=== PATIENT | male | born 1940 | race Caucasian/White ===

== ENCOUNTER 2019-03-17 11:30 | Inpatient (IN) | payer MEDICARE, MEDICAID ==
[2019-03-17] MEDS ORDERED: Sodium Chloride 0.9% 2.5 ML Syringe FLUSH PRN (11:51)
[2019-03-17] MEDS ORDERED: Sodium Chloride 0.9% 10 ML Syringe FLUSH PRN (11:51)
--- NOTE | 2019-03-17 12:03 | EDM.PDOC ---
ED [facility] GENERAL MEDICAL PROBLEM - General Chief Complaint: General Stated Complaint: FOUND NONE RESPONSIVE Time Seen by Provider: 03/17/19 11:45 Source of Information: Reports: Patient, EMS History Limitations: Reports: No Limitations - History of Present Illness INITIAL COMMENTS - FREE TEXT/NARRATIVE: Patient is a 78-year-old male with no known past medical history presenting after being found down in his living area. Per EMS, they received phone call from neighbors who states that they are concerned that the patient was unresponsive. Upon arrival to the house, the EMS found the patient lying on the floor and was awake but cannot stand on his own. Patient states he had been on the floor for a few hours and that he had felt terribly weak and was unable to walk. Patient denies any injuries and states he only has pain in his lower back area. According to emergency room staff, the patient is well-known in the town for riding his bike all over town. He is living in the area which does not seem suitable for an habitation. The police stopped by the emergency room as well to express her concerns which were confirmed with EMS that he was living in space it was extremely dirty and not habitable. In addition to that documented in the HPI above, the additional ROS was obtained : Constitutional: Denies fevers or chills Eyes: Denies vision changes ENMT: Denies sore throat CV: Denies chest pain Resp: Denies SOB GI: Denies vomiting or diarrhea : Denies painful urination MSK: Denies recent trauma Skin: Denies new rashes Neuro: Denies new numbness or tingling or weakness Endocrine: Denies unexpected weight loss Heme: Denies bleeding disorders I have reviewed the triage vital signs Const: Well nourished, well developed, appears stated age Eyes: PERRL, no conjunctival injection HENT: NCAT, Neck supple without meningismus CV: RRR, Warm, well-perfused extremities RESP: CTAB, Unlabored respiratory effort GI: soft, non-tender, non-distended, no masses MSK: No gross deformities appreciated Skin: Stage I pressure ulcer over the left hip. Warm, dry. No rashes Neuro: Bilateral pill-rolling tremor. alert, sugar grinder II-XII grossly intact. Sensation and motor function of extremities grossly intact. Psych: Appropriate mood and affect Assessment and plan: Patient is a 78-year-old male found down with possible syncopal episode. Patient likely had prolonged downtime with elevated CK in the 4000 range. Patient's renal function demonstrates a BUN of 25 and a creatinine of 0.9. Patient initiated on IV fluids in the emergency department. Otherwise, the patient has no acute abnormalities on labs or imaging studies. Given the patient's advanced age, he is at high risk for having adverse cardiac event and also will require IV fluids and close monitoring of renal function. Patient will be admitted to the hospitalist service for further evaluation and management. general Pain Score (Numeric/FACES): 5 - Related Data Allergies Allergy/AdvReac Type Severity Reaction Status Date / Time No Known Allergies Allergy Verified 03/17/19 11:54 Home Meds: Home Meds . [No Known Home Meds] 01/06/18 [History] Past Medical History HEENT History: Reports: Glaucoma Other HEENT History: wears glasses Genitourinary History: Reports: None Musculoskeletal History: Reports: Back Pain, Chronic Psychiatric History: Reports: Dementia Oncologic (Cancer) History: Reports: Basal Cell Carcinoma - Past Surgical History Head Surgeries/Procedures: Reports: None HEENT Surgical History: Reports: Naso-Sinus Surgery, Tonsillectomy Other HEENT Surgeries/Procedures: submucous resection of turbinate Male Surgical History: Reports: Circumcision ED ROS GENERAL - Review of Systems Review Of Systems: See Below ED EXAM, GENERAL - Physical Exam Exam: See Below Course - Vital Signs Last Recorded V/S: Last Vital Signs Temp 36.7 C 03/17/19 11:50 Pulse 97 03/17/19 13:16 Resp 16 03/17/19 13:16 BP 96/53 L 03/17/19 13:16 Pulse Ox 97 03/17/19 13:16 - Orders/Labs/Meds Orders: Active Orders 24 hr Category Date Time Status EKG Documentation Completion [RC] STAT Care 03/17/19 11:33 Active UA RFX KAVIN AND CULT IF INDIC [URIN] Stat Lab 03/17/19 11:33 Ordered Sodium Chloride 0.9% [Normal Saline] 1,000 ml Med 03/17/19 12:46 Active IV .BOLUS Sodium Chloride 0.9% [Saline Flush] Med 03/17/19 11:51 Active 10 ml FLUSH ASDIRECTED PRN Sodium Chloride 0.9% [Saline Flush] Med 03/17/19 11:51 Active 2.5 ml FLUSH ASDIRECTED PRN Saline Lock Insert [OM.PC] Stat Oth 03/17/19 11:51 Ordered Medication Orders Sodium Chloride (Normal Saline) 1,000 mls @ 999 mls/hr IV .BOLUS ONE Stop: 03/17/19 13:46 Last Admin: 03/17/19 13:05 Dose: 999 mls/hr Sodium Chloride (Saline Flush) 10 ml FLUSH ASDIRECTED PRN PRN Reason: Keep Vein Open Sodium Chloride (Saline Flush) 2.5 ml FLUSH ASDIRECTED PRN PRN Reason: Keep Vein Open Labs: Laboratory Tests 03/17/19 03/17/19 03/17/19 Range/Units 11:44 11:45 11:45 WBC 9.35 (4.0-11.0) K/uL RBC 4.11 L (4.50-5.90) M/uL Hgb 13.1 (13.0-17.0) g/dL Hct 36.5 L (38.0-50.0) % MCV 88.8 (80.0-98.0) fL MCH 31.9 (27.0-32.0) pg MCHC 35.9 (31.0-37.0) g/dL RDW Std Deviation 42.0 (28.0-62.0) fl RDW Coeff of Mary 13 (11.0-15.0) % Plt Count 207 (150-400) K/uL MPV 9.90 (7.40-12.00) fL Neut % (Auto) 81.6 H (48.0-80.0) % Lymph % (Auto) 10.4 L (16.0-40.0) % Clinch % (Auto) 7.6 (0.0-15.0) % Eos % (Auto) 0.2 (0.0-7.0) % Baso % (Auto) 0.2 (0.0-1.5) % Neut # (Auto) 7.6 H (1.4-5.7) K/uL Lymph # (Auto) 1.0 (0.6-2.4) K/uL Clinch # (Auto) 0.7 (0.0-0.8) K/uL Eos # (Auto) 0.0 (0.0-0.7) K/uL Baso # (Auto) 0.0 (0.0-0.1) K/uL Nucleated RBC % 0.0 /100WBC Nucleated RBCs # 0 K/uL Sodium 137 (136-148) mmol/L Potassium 4.0 (3.5-5.1) mmol/L Chloride 101 (98-107) mmol/L Carbon Dioxide 23.4 (21.0-32.0) mmol/L BUN 25 H (7.0-18.0) mg/dL Creatinine 0.9 (0.8-1.3) mg/dL Est Cr Clr Drug Dosing 60.76 mL/min Estimated GFR (MDRD) > 60.0 ml/min Glucose 97 (74-106) mg/dL POC Glucose 99 (60-110) mg/dL Calcium 8.8 (8.5-10.1) mg/dL Total Bilirubin 0.9 (0.2-1.0) mg/dL AST 123 H (15-37) IU/L ALT 74 H (14-63) IU/L Alkaline Phosphatase 98 (46-116) U/L Creatine Kinase 3972 H (26-308) U/L Troponin I < 0.050 (0.000-0.056) ng/mL Total Protein 7.0 (6.4-8.2) g/dL Albumin 3.5 (3.4-5.0) g/dL Globulin 3.5 (2.6-4.0) g/dL Albumin/Globulin Ratio 1.0 (0.9-1.6) Ethyl Alcohol 3 mg/dL Meds: Medications Generic Name Dose Route Start Last Admin Trade Name Freq PRN Reason Stop Dose Admin Sodium Chloride 1,000 mls @ 999 mls/hr 03/17/19 12:46 03/17/19 13:05 Normal Saline IV 03/17/19 13:46 999 mls/hr .BOLUS ONE Administration Sodium Chloride 10 ml 03/17/19 11:51 Saline Flush FLUSH ASDIRECTED PRN Keep Vein Open Sodium Chloride 2.5 ml 03/17/19 11:51 Saline Flush FLUSH ASDIRECTED PRN Keep Vein Open Departure - Departure Time of Disposition: 11:59 Disposition: Admitted As Inpatient 66 Clinical Impression: Syncope and collapse, Rhabdomyolysis - Discharge Information Forms: ED Department Discharge Sepsis Event Note - Evaluation Sepsis Screening Result: No Definite Risk - Focused Exam Vital Signs: Vital Signs Temp Pulse Resp BP Pulse Ox 03/17/19 13:16 97 16 96/53 L 97 03/17/19 12:53 80 15 103/38 L 96 03/17/19 11:50 36.7 C 100 16 138/83 99 Date Exam was Performed: 03/17/19 Time Exam was Performed: 13:45 - My Orders Last 24 Hours: My Active Orders 03/17/19 11:33 EKG Documentation Completion [RC] STAT UA RFX KAVIN AND CULT IF INDIC [URIN] Stat 03/17/19 11:51 Sodium Chloride 0.9% [Saline Flush] 10 ml FLUSH ASDIRECTED PRN Sodium Chloride 0.9% [Saline Flush] 2.5 ml FLUSH ASDIRECTED PRN Saline Lock Insert [OM.PC] Stat 03/17/19 12:46 Sodium Chloride 0.9% [Normal Saline] 1,000 ml IV .BOLUS - Assessment/Plan Last 24 Hours: My Active Orders 03/17/19 11:33 EKG Documentation Completion [RC] STAT UA RFX KAVIN AND CULT IF INDIC [URIN] Stat 03/17/19 11:51 Sodium Chloride 0.9% [Saline Flush] 10 ml FLUSH ASDIRECTED PRN Sodium Chloride 0.9% [Saline Flush] 2.5 ml FLUSH ASDIRECTED PRN Saline Lock Insert [OM.PC] Stat 03/17/19 12:46 Sodium Chloride 0.9% [Normal Saline] 1,000 ml IV .BOLUS
[2019-03-17 12:36] LABS: BLOOD UREA NITROGEN,BUN 25 mg/dL (7.0-18.0); CARBON DIOXIDE,CO2 23.4 mmol/L (21.0-32.0); CHLORIDE,CL 101 mmol/L (98-107); GLUCOSE RANDOM 97 mg/dL (74-106); SODIUM,NA 137 mmol/L (136-148)
[2019-03-17] MEDS ORDERED: Sodium Chloride 0.9% 1,000 ML IV ONE ×2 (12:46→14:02)
--- NOTE | 2019-03-17 12:53 | CT ---
Head CT Technique: Multiple axial sections through the brain were obtained. Intravenous contrast was not utilized. Comparison: No prior intracranial imaging is available. Findings: Ventricles are rather markedly dilated. Sulci over the convexities are less prominently dilated. Prominent cisterna magna is noted. Old infarct is noted within the right cerebellar hemisphere. No other abnormal parenchymal densities are seen. No evidence of intracranial hemorrhage. No midline shift or mass effect is seen. Bone window settings were reviewed. Mild mucosal thickening is seen within the right maxillary sinus and within the ethmoid sinuses. These sinus findings are most likely chronic. Mastoid sinuses show nothing acute. No acute calvarial abnormality is appreciated. Impression: 1. Atrophy with greater central component. 2. Old right cerebellar infarct. 3. Nothing acute is otherwise seen on noncontrast head CT exam. Diagnostic code #2 This report was dictated in [place] Standard Time
--- NOTE | 2019-03-17 13:28 | CR ---
Chest: Supine view of the chest was obtained. Comparison: No prior chest imaging is available. Heart size and mediastinum are normal. Lungs are clear with no acute parenchymal change. Bony structures show scattered endplate spurring within the spine as well as osteopenia. Impression: 1. Nothing acute is seen on supine abdominal x-ray. Diagnostic code #2 Study was dictated in [place] Standard Time
--- NOTE | 2019-03-17 13:38 | CR ---
Left hip and pelvis: AP view of the pelvis was obtained as well as AP and frog-leg lateral views left hip. Mild joint space narrowing is seen within both hips. Disc space narrowing is noted within the lower lumbar spine with scoliosis and endplate spurring. Bony structures are osteoporotic. No acute fracture or dislocation is seen. Impression: 1. Osteopenia and degenerative change as noted above. 2. Nothing acute is appreciated. Diagnostic code #2 Study was dictated in [place] Standard Time
[2019-03-17] MEDS ORDERED: Sodium Chloride 0.9% 1,000 ML IV SCH (14:00)
[2019-03-17] MEDS ORDERED: Ondansetron 4 MG/2 ML SDV IVPUSH PRN (14:31)
[2019-03-17] MEDS ORDERED: Acetaminophen 325 MG Tab PO PRN (14:31)
--- NOTE | 2019-03-17 14:57 | PCM.HP.2 ---
H&P History of Present Illness - General Date of Service: 03/17/19 Admit Problem/Dx: Admission Diagnosis/Problem Admission Diagnosis/Problem Syncope and collapse Source of Information: Patient History Limitations: Reports: No Limitations - History of Present Illness Initial Comments - Free Text/Narative: This 78 year old male with no past medical history reports presented to the ED via EMS after being found by neighbors lying on the ground and unable to get up. He reports he fell and had been laying there for a couple hours. He is unsure how he fell down, isn't sure he fully passed out. He might had hit his head but isn't sure. He states he feels his legs just gave out. He denies chest pain, but reports it hurting when he takes a deep breath in. No abdominal pain. Reports concerns urinating at times. No shortness of breath or cough. No sore throat or sinus congestion. No neck pain. He reports L and R hip pain. He denies alcohol or tobacco use and no recreational drug use. 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 In the ED CBC WNL, AST and ALT slightly elevated. Troponin negative. EKG SR mild ST elevation, lead II, III but no chest pain. CPK elevated 3900. He was given IVFs x 1 L NS in the ED. He will be admitted for possible syncope and rhabdomyolysis. general Pain Score (Numeric/FACES): 5 - Related Data Allergies/Adverse Reactions: Allergies Allergy/AdvReac Type Severity Reaction Status Date / Time No Known Allergies Allergy Verified 03/17/19 11:54 Home Medications: Home Meds . [No Known Home Meds] 01/06/18 [History] Past Medical History - Past Health History Medical/Surgical History: Denies Medical/Surgical History HEENT History: Reports: Glaucoma Other HEENT History: wears glasses Cardiovascular History: Reports: None. Denies: CAD, Hypertension, [place] Respiratory History: Reports: None Gastrointestinal History: Reports: None Genitourinary History: Reports: None Musculoskeletal History: Reports: Back Pain, Chronic Neurological History: Reports: None Psychiatric History: Reports: Dementia Endocrine/Metabolic History: Reports: None. Denies: Diabetes, Type II, Obesity/ BMI 30+ Oncologic (Cancer) History: Reports: Basal Cell Carcinoma - Past Surgical History Head Surgeries/Procedures: Reports: None HEENT Surgical History: Reports: Naso-Sinus Surgery, Tonsillectomy Other HEENT Surgeries/Procedures: submucous resection of turbinate Male Surgical History: Reports: Circumcision Social & Family History - Family History Family Medical History: Noncontributory - Tobacco Use Smoking Status *Q: Never Smoker - Alcohol Use Alcohol Use History: No - Recreational Drug Use Recreational Drug Use: No Drug Use in Last 12 Months: No - Living Situation & Occupation Living situation: Reports: Alone Occupation: Retired H&P Review of Systems - Review of Systems: Review Of Systems: See Below General: Reports: Malaise, Weakness, Fatigue HEENT: Reports: No Symptoms. Denies: Headaches, Sinus Congestion, Sore Throat Pulmonary: Reports: Pleuritic Chest Pain (with deep breathing). Denies: Shortness of Breath Cardiovascular: Reports: Syncope. Denies: Chest Pain, Lightheadedness Gastrointestinal: Reports: No Symptoms. Denies: Abdominal Pain, Black Stool, Bloody Stool, Nausea, Vomiting Genitourinary: Reports: Retention Musculoskeletal: Reports: No Symptoms Skin: Reports: Bruising, Wound Psychiatric: Reports: No Symptoms Neurological: Reports: No Symptoms Exam - Exam Exam: See Below - Vital Signs Vital Signs: Last Vital Signs Temp 98.0 F 03/17/19 11:50 Pulse 97 03/17/19 13:16 Resp 16 03/17/19 13:16 BP 96/53 L 03/17/19 13:16 Pulse Ox 97 03/17/19 13:16 Weight: 63.503 kg - Exam General: Alert, Oriented, Cooperative, Other (disheveled in appearance, with dirty nails and multiple skin abrasions. ) HEENT: No: Mucosa Moist & Mcroberts, Other (L lower eye lid basal cell carcinoma ) Neck: Supple Lungs: Clear to Auscultation, Normal Respiratory Effort Cardiovascular: Regular Rate, Regular Rhythm GI/Abdominal Exam: Normal Bowel Sounds, Soft, Non-Tender Back Exam: Normal Inspection, Full Range of Motion Extremities: Normal Inspection, Pedal Edema (+1 pitting edema) Skin: Warm, Dry, Ecchymosis (L hip bruising, multiple skin abrasions noted to elbows and forearms. . Large abrasion to L knee. Old blistered burn to R middle finger, doesn't know how this got there. ), Wound Neuro Extensive - Mental Status: Alert, Oriented x3, Normal Mood/Affect Psychiatric: Alert, Normal Affect, Normal Mood - Patient Data Lab Results Last 24 hrs: Laboratory Results - last 24 hr 03/17/19 03/17/19 03/17/19 Range/Units 11:44 11:45 11:45 WBC 9.35 (4.0-11.0) K/uL RBC 4.11 L (4.50-5.90) M/uL Hgb 13.1 (13.0-17.0) g/dL Hct 36.5 L (38.0-50.0) % MCV 88.8 (80.0-98.0) fL MCH 31.9 (27.0-32.0) pg MCHC 35.9 (31.0-37.0) g/dL RDW Std Deviation 42.0 (28.0-62.0) fl RDW Coeff of Mary 13 (11.0-15.0) % Plt Count 207 (150-400) K/uL MPV 9.90 (7.40-12.00) fL Neut % (Auto) 81.6 H (48.0-80.0) % Lymph % (Auto) 10.4 L (16.0-40.0) % Harmon % (Auto) 7.6 (0.0-15.0) % Eos % (Auto) 0.2 (0.0-7.0) % Baso % (Auto) 0.2 (0.0-1.5) % Neut # (Auto) 7.6 H (1.4-5.7) K/uL Lymph # (Auto) 1.0 (0.6-2.4) K/uL Harmon # (Auto) 0.7 (0.0-0.8) K/uL Eos # (Auto) 0.0 (0.0-0.7) K/uL Baso # (Auto) 0.0 (0.0-0.1) K/uL Nucleated RBC % 0.0 /100WBC Nucleated RBCs # 0 K/uL Sodium 137 (136-148) mmol/L Potassium 4.0 (3.5-5.1) mmol/L Chloride 101 (98-107) mmol/L Carbon Dioxide 23.4 (21.0-32.0) mmol/L BUN 25 H (7.0-18.0) mg/dL Creatinine 0.9 (0.8-1.3) mg/dL Est Cr Clr Drug Dosing 60.76 mL/min Estimated GFR (MDRD) > 60.0 ml/min Glucose 97 (74-106) mg/dL POC Glucose 99 (60-110) mg/dL Calcium 8.8 (8.5-10.1) mg/dL Total Bilirubin 0.9 (0.2-1.0) mg/dL AST 123 H (15-37) IU/L ALT 74 H (14-63) IU/L Alkaline Phosphatase 98 (46-116) U/L Creatine Kinase 3972 H (26-308) U/L Troponin I < 0.050 (0.000-0.056) ng/mL Total Protein 7.0 (6.4-8.2) g/dL Albumin 3.5 (3.4-5.0) g/dL Globulin 3.5 (2.6-4.0) g/dL Albumin/Globulin Ratio 1.0 (0.9-1.6) Ethyl Alcohol 3 mg/dL Result Diagrams: 03/17/19 11:45 03/17/19 11:45 Sepsis Event Note - Evaluation Sepsis Screening Result: No Definite Risk - Focused Exam Vital Signs: Vital Signs Temp Pulse Resp BP Pulse Ox 03/17/19 13:16 97 16 96/53 L 97 03/17/19 12:53 80 15 103/38 L 96 03/17/19 11:50 98.0 F 100 16 138/83 99 Date Exam was Performed: 03/17/19 Time Exam was Performed: 14:46 *Q Meaningful Use (ADM) - VTE Risk Assess *Q Each Risk Factor Represents 1 Point: None Total Score 1 Point Risk Factors: 0 Each Risk Factor Represents 2 Points: None Total Score 2 Point Risk Factors: 0 Each Risk Factor Represents 3 Points: Age 75 Years or Greater Total Score 3 Point Risk Factors: 3 Each Risk Factor Represents 5 Points: None Total Score 5 Point Risk Factors: 0 Venous Thromboembolism Risk Factor Score *Q: 3 - Problem List (1) Total self-care deficit SNOMED Code(s): 68727583 ICD Code: R68.89 - OTHER GENERAL SYMPTOMS AND SIGNS Status: Acute Current Visit: Yes (2) Weakness SNOMED Code(s): 94701538 ICD Code: R53.1 - WEAKNESS Status: Acute Current Visit: Yes (3) Rhabdomyolysis SNOMED Code(s): 610403713 ICD Code: M62.82 - RHABDOMYOLYSIS Status: Acute Current Visit: No (4) Syncope and collapse SNOMED Code(s): 173253185 ICD Code: R55 - SYNCOPE AND COLLAPSE Status: Acute Current Visit: No Problem List Initiated/Reviewed/Updated: Yes Orders Last 24hrs: Active Orders 24 hr Category Date Time Status Admission Status [Patient Status] [ADT] Stat ADT 03/17/19 13:53 Active Bladder Scan [RC] ASDIRECTED Care 03/17/19 14:40 Ordered EKG Documentation Completion [RC] STAT Care 03/17/19 11:33 Active Height and Weight [RC] DAILY Care 03/17/19 14:31 Ordered Intake and Output Strict [RC] ASDIRECTED Care 03/17/19 14:46 Ordered Intake and Output [RC] QSHIFT Care 03/17/19 14:32 Inactive May Shower [RC] ASDIRECTED Care 03/17/19 14:31 Ordered Oxygen Therapy [RC] PRN Care 03/17/19 14:32 Ordered Up With Assistance [RC] ASDIRECTED Care 03/17/19 14:31 Ordered VTE/DVT Education [RC] PER UNIT ROUTINE Care 03/17/19 14:32 Ordered Vital Signs [RC] Q4H Care 03/17/19 14:32 Ordered Consult to Case Management/Tire Finisher [CONS] Cons 03/17/19 14:31 Ordered Routine OT Evaluation and Treatment [CONS] Routine Cons 03/17/19 14:31 Ordered PT Evaluation and Treatment [CONS] Routine Cons 03/18/19 08:00 Ordered Regular Diet [DIET] Diet 03/17/19 Lunch Ordered CBC WITH AUTO DIFF [HEME] AM Lab 03/18/19 05:11 Ordered CBC WITH AUTO DIFF [HEME] AM Lab 03/19/19 05:11 Ordered CBC WITH AUTO DIFF [HEME] AM Lab 03/20/19 05:11 Ordered COMPREHENSIVE METABOLIC PN,CMP [CHEM] AM Lab 03/18/19 05:11 Ordered COMPREHENSIVE METABOLIC PN,CMP [CHEM] AM Lab 03/19/19 05:11 Ordered COMPREHENSIVE METABOLIC PN,CMP [CHEM] AM Lab 03/20/19 05:11 Ordered CPK [CREATINE KINASE,CK] [CHEM] AM Lab 03/18/19 05:11 Ordered CPK [CREATINE KINASE,CK] [CHEM] AM Lab 03/19/19 05:11 Ordered CPK [CREATINE KINASE,CK] [CHEM] AM Lab 03/20/19 05:11 Ordered CPK [CREATINE KINASE,CK] [CHEM] Timed Lab 03/17/19 17:45 Ordered DRUG SCREEN, URINE [URCHEM] Stat Lab 03/17/19 14:02 Ordered MAGNESIUM [CHEM] AM Lab 03/18/19 05:11 Ordered MAGNESIUM [CHEM] AM Lab 03/19/19 05:11 Ordered MAGNESIUM [CHEM] AM Lab 03/20/19 05:11 Ordered MAGNESIUM [CHEM] Routine Lab 03/17/19 14:31 Ordered PHOSPHORUS [CHEM] AM Lab 03/18/19 05:11 Ordered PHOSPHORUS [CHEM] AM Lab 03/19/19 05:11 Ordered PHOSPHORUS [CHEM] AM Lab 03/20/19 05:11 Ordered PHOSPHORUS [CHEM] Routine Lab 03/17/19 14:31 Ordered TROPONIN I [CHEM] Q6H Lab 03/17/19 17:45 Ordered TROPONIN I [CHEM] Q6H Lab 03/17/19 23:45 Ordered UA RFX KAVIN AND CULT IF INDIC [URIN] Stat Lab 03/17/19 11:33 Ordered Acetaminophen [Tylenol] Med 03/17/19 14:31 Ordered 650 mg PO Q4H PRN Ondansetron [Zofran] Med 03/17/19 14:31 Ordered 4 mg IVPUSH Q4H PRN Sodium Chloride 0.9% [Normal Saline] 1,000 ml Med 03/17/19 14:02 Active IV .BOLUS Sodium Chloride 0.9% [Normal Saline] 1,000 ml Med 03/17/19 14:45 Ordered IV Q6H Sodium Chloride 0.9% [Saline Flush] Med 03/17/19 11:51 Active 10 ml FLUSH ASDIRECTED PRN Sodium Chloride 0.9% [Saline Flush] Med 03/17/19 11:51 Active 2.5 ml FLUSH ASDIRECTED PRN Saline Lock Insert [OM.PC] Stat Oth 03/17/19 11:51 Ordered Resuscitation Status Routine Resus Stat 03/17/19 14:31 Ordered Medication Orders Acetaminophen (Tylenol) 650 mg PO Q4H PRN PRN Reason: Pain (mild 1-3) Sodium Chloride (Normal Saline) 1,000 mls @ 999 mls/hr IV .BOLUS ONE Stop: 03/17/19 15:02 Sodium Chloride (Normal Saline) 1,000 mls @ 150 mls/hr IV Q6H BEN Ondansetron HCl (Zofran) 4 mg IVPUSH Q4H PRN PRN Reason: Nausea Sodium Chloride (Saline Flush) 10 ml FLUSH ASDIRECTED PRN PRN Reason: Keep Vein Open Sodium Chloride (Saline Flush) 2.5 ml FLUSH ASDIRECTED PRN PRN Reason: Keep Vein Open Assessment/Plan Comment:: This 78 year old male admitted with syncope and rhabdomyolysis 1. Syncope: Suspected, unsure of how he fell. Will monitor on telemetry. Trend troponins. Monitor VS. 2. Rhabdomyolysis: Give another 1 L NS bolus, then continue IVFs at 150 ml/s hr , recheck CPK this evening. Will monitor I/O Strictly. reports not urinating well, will bladder scan, may need to place graff catheter. UA pending. 3. Total self care deficit: Consult Social work. Malnutrition suspected, will monitor electrolytes. VTE prophylaxis: Heparin Dispo: 2-3 days. - Mortality Measure Prognosis:: Good
[2019-03-17] MEDS: Heparin Sodium 5,000 Units/ML Vial SUBCUT SCH ×2 (16:09→22:59)
[2019-03-17] MEDS: Sodium Chloride 0.9% 1,000 ML IV SCH ×2 (16:16→22:58)
[2019-03-18] MEDS: Diltiazem 25 MG/5 ML SDV IVPUSH PRN (00:16)
[2019-03-18] MEDS: Sodium Chloride 0.9% 1,000 ML IV SCH ×4 (03:17→19:04)
[2019-03-18 06:12] LABS: BLOOD UREA NITROGEN,BUN 22 mg/dL (7.0-18.0); CARBON DIOXIDE,CO2 21.4 mmol/L (21.0-32.0); CHLORIDE,CL 106 mmol/L (98-107); GLUCOSE RANDOM 104 mg/dL (74-106); POTASSIUM,K 3.9 mmol/L (3.5-5.1); SODIUM,NA 140 mmol/L (136-148)
[2019-03-18] MEDS ORDERED: Magnesium Sulfate/Water 2 GM in Premix Bag 1 BAG IV ONE (08:06)
[2019-03-18] MEDS: Phosphorus #1 250 MG Tab PO SCH ×4 (08:19→23:09)
[2019-03-18] MEDS: Heparin Sodium 5,000 Units/ML Vial SUBCUT SCH ×3 (08:21→22:46)
--- NOTE | 2019-03-18 09:14 | PCM.PN ---
- General Info Date of Service: 03/18/19 Admission Dx/Problem (Free Text): Admission Diagnosis/Problem Admission Diagnosis/Problem Syncope and collapse Subjective Update: Feeling good today. No concerns. Asking about his glasses. No chest pain or palpitations. No hip pain. Functional Status: Reports: Pain Controlled, Tolerating Diet, Urinating. Denies : Ambulating - Review of Systems HEENT: Reports: No Symptoms Pulmonary: Reports: No Symptoms. Denies: Shortness of Breath Cardiovascular: Reports: No Symptoms. Denies: Chest Pain Gastrointestinal: Reports: No Symptoms. Denies: Abdominal Pain, Nausea, Vomiting Genitourinary: Reports: No Symptoms Musculoskeletal: Reports: No Symptoms Skin: Reports: No Symptoms Neurological: Reports: No Symptoms Psychiatric: Reports: No Symptoms - Patient Data Vitals - Most Recent: Last Vital Signs Temp 98 F 03/18/19 07:15 Pulse 85 03/18/19 07:15 Resp 16 03/18/19 07:15 BP 102/52 L 03/18/19 07:15 Pulse Ox 92 L 03/18/19 07:15 Weight - Most Recent: 61.45 kg I&O - Last 24 Hours: Intake & Output 03/17/19 03/18/19 03/18/19 22:59 06:59 14:59 Intake Total 1149 2184 Output Total 210 636 Balance 939 6488 Lab Results Last 24 Hours: Laboratory Results - last 24 hr 03/17/19 03/17/19 03/17/19 Range/Units 11:44 11:45 11:45 WBC 9.35 (4.0-11.0) K/uL RBC 4.11 L (4.50-5.90) M/uL Hgb 13.1 (13.0-17.0) g/dL Hct 36.5 L (38.0-50.0) % MCV 88.8 (80.0-98.0) fL MCH 31.9 (27.0-32.0) pg MCHC 35.9 (31.0-37.0) g/dL RDW Std Deviation 42.0 (28.0-62.0) fl RDW Coeff of Mary 13 (11.0-15.0) % Plt Count 207 (150-400) K/uL MPV 9.90 (7.40-12.00) fL Neut % (Auto) 81.6 H (48.0-80.0) % Lymph % (Auto) 10.4 L (16.0-40.0) % [place] % (Auto) 7.6 (0.0-15.0) % Eos % (Auto) 0.2 (0.0-7.0) % Baso % (Auto) 0.2 (0.0-1.5) % Neut # (Auto) 7.6 H (1.4-5.7) K/uL Lymph # (Auto) 1.0 (0.6-2.4) K/uL [place] # (Auto) 0.7 (0.0-0.8) K/uL Eos # (Auto) 0.0 (0.0-0.7) K/uL Baso # (Auto) 0.0 (0.0-0.1) K/uL Nucleated RBC % 0.0 /100WBC Nucleated RBCs # 0 K/uL Sodium 137 (136-148) mmol/L Potassium 4.0 (3.5-5.1) mmol/L Chloride 101 (98-107) mmol/L Carbon Dioxide 23.4 (21.0-32.0) mmol/L BUN 25 H (7.0-18.0) mg/dL Creatinine 0.9 (0.8-1.3) mg/dL Est Cr Clr Drug Dosing 60.76 mL/min Estimated GFR (MDRD) > 60.0 ml/min Glucose 97 (74-106) mg/dL POC Glucose 99 (60-110) mg/dL Calcium 8.8 (8.5-10.1) mg/dL Phosphorus (2.6-4.7) mg/dL Magnesium (1.8-2.4) mg/dL Total Bilirubin 0.9 (0.2-1.0) mg/dL AST 123 H (15-37) IU/L ALT 74 H (14-63) IU/L Alkaline Phosphatase 98 (46-116) U/L Creatine Kinase 3972 H (26-308) U/L Troponin I < 0.050 (0.000-0.056) ng/mL Total Protein 7.0 (6.4-8.2) g/dL Albumin 3.5 (3.4-5.0) g/dL Globulin 3.5 (2.6-4.0) g/dL Albumin/Globulin Ratio 1.0 (0.9-1.6) Urine Color Urine Appearance Urine pH (5.0-8.0) Ur Specific [place] (1.001-1.035) Urine Protein (NEGATIVE) mg/dL Urine Glucose (UA) (NEGATIVE) mg/dL Urine Ketones (NEGATIVE) mg/dL Urine Occult Blood (NEGATIVE) Urine Nitrite (NEGATIVE) Urine Bilirubin (NEGATIVE) Urine Urobilinogen (<2.0) EU/dL Ur Leukocyte Esterase (NEGATIVE) Urine RBC (0-2/HPF) Urine WBC (0-5/HPF) Ur Epithelial Cells (NONE-FEW) Urine Bacteria (NEGATIVE) Urine Opiates Screen (NEGATIVE) Ur Oxycodone Screen (NEGATIVE) Urine Methadone Screen (NEGATIVE) Ur Barbiturates Screen (NEGATIVE) Ur Phencyclidine Scrn (NEGATIVE) Ur Amphetamine Screen (NEGATIVE) U Methamphetamines Scrn (NEGATIVE) U Benzodiazepines Scrn (NEGATIVE) U Cocaine Metab Screen (NEGATIVE) U Marijuana (THC) Screen (NEGATIVE) Ethyl Alcohol 3 mg/dL 03/17/19 03/17/19 03/17/19 Range/Units 11:45 17:29 17:29 WBC (4.0-11.0) K/uL RBC (4.50-5.90) M/uL Hgb (13.0-17.0) g/dL Hct (38.0-50.0) % MCV (80.0-98.0) fL MCH (27.0-32.0) pg MCHC (31.0-37.0) g/dL RDW Std Deviation (28.0-62.0) fl RDW Coeff of Mary (11.0-15.0) % Plt Count (150-400) K/uL MPV (7.40-12.00) fL Neut % (Auto) (48.0-80.0) % Lymph % (Auto) (16.0-40.0) % [place] % (Auto) (0.0-15.0) % Eos % (Auto) (0.0-7.0) % Baso % (Auto) (0.0-1.5) % Neut # (Auto) (1.4-5.7) K/uL Lymph # (Auto) (0.6-2.4) K/uL [place] # (Auto) (0.0-0.8) K/uL Eos # (Auto) (0.0-0.7) K/uL Baso # (Auto) (0.0-0.1) K/uL Nucleated RBC % /100WBC Nucleated RBCs # K/uL Sodium (136-148) mmol/L Potassium (3.5-5.1) mmol/L Chloride (98-107) mmol/L Carbon Dioxide (21.0-32.0) mmol/L BUN (7.0-18.0) mg/dL Creatinine (0.8-1.3) mg/dL Est Cr Clr Drug Dosing mL/min Estimated GFR (MDRD) ml/min Glucose (74-106) mg/dL POC Glucose (60-110) mg/dL Calcium (8.5-10.1) mg/dL Phosphorus 2.9 (2.6-4.7) mg/dL Magnesium 1.8 (1.8-2.4) mg/dL Total Bilirubin (0.2-1.0) mg/dL AST (15-37) IU/L ALT (14-63) IU/L Alkaline Phosphatase (46-116) U/L Creatine Kinase (26-308) U/L Troponin I (0.000-0.056) ng/mL Total Protein (6.4-8.2) g/dL Albumin (3.4-5.0) g/dL Globulin (2.6-4.0) g/dL Albumin/Globulin Ratio (0.9-1.6) Urine Color YELLOW Urine Appearance CLEAR Urine pH 6.0 (5.0-8.0) Ur Specific [place] 1.025 (1.001-1.035) Urine Protein TRACE H (NEGATIVE) mg/dL Urine Glucose (UA) NEGATIVE (NEGATIVE) mg/dL Urine Ketones 15 H (NEGATIVE) mg/dL Urine Occult Blood MODERATE H (NEGATIVE) Urine Nitrite NEGATIVE (NEGATIVE) Urine Bilirubin NEGATIVE (NEGATIVE) Urine Urobilinogen 0.2 (<2.0) EU/dL Ur Leukocyte Esterase NEGATIVE (NEGATIVE) Urine RBC 0-1 (0-2/HPF) Urine WBC 0-1 (0-5/HPF) Ur Epithelial Cells NOT SEEN (NONE-FEW) Urine Bacteria RARE (NEGATIVE) Urine Opiates Screen NEGATIVE (NEGATIVE) Ur Oxycodone Screen NEGATIVE (NEGATIVE) Urine Methadone Screen NEGATIVE (NEGATIVE) Ur Barbiturates Screen NEGATIVE (NEGATIVE) Ur Phencyclidine Scrn NEGATIVE (NEGATIVE) Ur Amphetamine Screen NEGATIVE (NEGATIVE) U Methamphetamines Scrn NEGATIVE (NEGATIVE) U Benzodiazepines Scrn NEGATIVE (NEGATIVE) U Cocaine Metab Screen NEGATIVE (NEGATIVE) U Marijuana (THC) Screen NEGATIVE (NEGATIVE) Ethyl Alcohol mg/dL 03/17/19 03/17/19 03/18/19 Range/Units 17:43 23:43 05:32 WBC 8.29 (4.0-11.0) K/uL RBC 3.53 L (4.50-5.90) M/uL Hgb 11.1 L (13.0-17.0) g/dL Hct 31.8 L (38.0-50.0) % MCV 90.1 (80.0-98.0) fL MCH 31.4 (27.0-32.0) pg MCHC 34.9 (31.0-37.0) g/dL RDW Std Deviation 42.8 (28.0-62.0) fl RDW Coeff of Mary 13 (11.0-15.0) % Plt Count 183 (150-400) K/uL MPV 9.00 (7.40-12.00) fL Neut % (Auto) 79.1 (48.0-80.0) % Lymph % (Auto) 12.8 L (16.0-40.0) % [place] % (Auto) 6.6 (0.0-15.0) % Eos % (Auto) 1.1 (0.0-7.0) % Baso % (Auto) 0.4 (0.0-1.5) % Neut # (Auto) 6.6 H (1.4-5.7) K/uL Lymph # (Auto) 1.1 (0.6-2.4) K/uL [place] # (Auto) 0.6 (0.0-0.8) K/uL Eos # (Auto) 0.1 (0.0-0.7) K/uL Baso # (Auto) 0.0 (0.0-0.1) K/uL Nucleated RBC % 0.0 /100WBC Nucleated RBCs # 0 K/uL Sodium (136-148) mmol/L Potassium (3.5-5.1) mmol/L Chloride (98-107) mmol/L Carbon Dioxide (21.0-32.0) mmol/L BUN (7.0-18.0) mg/dL Creatinine (0.8-1.3) mg/dL Est Cr Clr Drug Dosing mL/min Estimated GFR (MDRD) ml/min Glucose (74-106) mg/dL POC Glucose (60-110) mg/dL Calcium (8.5-10.1) mg/dL Phosphorus (2.6-4.7) mg/dL Magnesium (1.8-2.4) mg/dL Total Bilirubin (0.2-1.0) mg/dL AST (15-37) IU/L ALT (14-63) IU/L Alkaline Phosphatase (46-116) U/L Creatine Kinase 3876 H (26-308) U/L Troponin I < 0.050 < 0.050 (0.000-0.056) ng/mL Total Protein (6.4-8.2) g/dL Albumin (3.4-5.0) g/dL Globulin (2.6-4.0) g/dL Albumin/Globulin Ratio (0.9-1.6) Urine Color Urine Appearance Urine pH (5.0-8.0) Ur Specific [place] (1.001-1.035) Urine Protein (NEGATIVE) mg/dL Urine Glucose (UA) (NEGATIVE) mg/dL Urine Ketones (NEGATIVE) mg/dL Urine Occult Blood (NEGATIVE) Urine Nitrite (NEGATIVE) Urine Bilirubin (NEGATIVE) Urine Urobilinogen (<2.0) EU/dL Ur Leukocyte Esterase (NEGATIVE) Urine RBC (0-2/HPF) Urine WBC (0-5/HPF) Ur Epithelial Cells (NONE-FEW) Urine Bacteria (NEGATIVE) Urine Opiates Screen (NEGATIVE) Ur Oxycodone Screen (NEGATIVE) Urine Methadone Screen (NEGATIVE) Ur Barbiturates Screen (NEGATIVE) Ur Phencyclidine Scrn (NEGATIVE) Ur Amphetamine Screen (NEGATIVE) U Methamphetamines Scrn (NEGATIVE) U Benzodiazepines Scrn (NEGATIVE) U Cocaine Metab Screen (NEGATIVE) U Marijuana (THC) Screen (NEGATIVE) Ethyl Alcohol mg/dL 03/18/19 Range/Units 05:32 WBC (4.0-11.0) K/uL RBC (4.50-5.90) M/uL Hgb (13.0-17.0) g/dL Hct (38.0-50.0) % MCV (80.0-98.0) fL MCH (27.0-32.0) pg MCHC (31.0-37.0) g/dL RDW Std Deviation (28.0-62.0) fl RDW Coeff of Mary (11.0-15.0) % Plt Count (150-400) K/uL MPV (7.40-12.00) fL Neut % (Auto) (48.0-80.0) % Lymph % (Auto) (16.0-40.0) % [place] % (Auto) (0.0-15.0) % Eos % (Auto) (0.0-7.0) % Baso % (Auto) (0.0-1.5) % Neut # (Auto) (1.4-5.7) K/uL Lymph # (Auto) (0.6-2.4) K/uL [place] # (Auto) (0.0-0.8) K/uL Eos # (Auto) (0.0-0.7) K/uL Baso # (Auto) (0.0-0.1) K/uL Nucleated RBC % /100WBC Nucleated RBCs # K/uL Sodium 140 (136-148) mmol/L Potassium 3.9 (3.5-5.1) mmol/L Chloride 106 (98-107) mmol/L Carbon Dioxide 21.4 (21.0-32.0) mmol/L BUN 22 H (7.0-18.0) mg/dL Creatinine 0.9 (0.8-1.3) mg/dL Est Cr Clr Drug Dosing 58.79 mL/min Estimated GFR (MDRD) > 60.0 ml/min Glucose 104 (74-106) mg/dL POC Glucose (60-110) mg/dL Calcium 7.7 L (8.5-10.1) mg/dL Phosphorus 2.1 L (2.6-4.7) mg/dL Magnesium 1.7 L (1.8-2.4) mg/dL Total Bilirubin 0.7 (0.2-1.0) mg/dL AST 131 H (15-37) IU/L ALT 73 H (14-63) IU/L Alkaline Phosphatase 67 (46-116) U/L Creatine Kinase 2955 H (26-308) U/L Troponin I (0.000-0.056) ng/mL Total Protein 5.7 L (6.4-8.2) g/dL Albumin 2.7 L (3.4-5.0) g/dL Globulin 3.0 (2.6-4.0) g/dL Albumin/Globulin Ratio 0.9 (0.9-1.6) Urine Color Urine Appearance Urine pH (5.0-8.0) Ur Specific [place] (1.001-1.035) Urine Protein (NEGATIVE) mg/dL Urine Glucose (UA) (NEGATIVE) mg/dL Urine Ketones (NEGATIVE) mg/dL Urine Occult Blood (NEGATIVE) Urine Nitrite (NEGATIVE) Urine Bilirubin (NEGATIVE) Urine Urobilinogen (<2.0) EU/dL Ur Leukocyte Esterase (NEGATIVE) Urine RBC (0-2/HPF) Urine WBC (0-5/HPF) Ur Epithelial Cells (NONE-FEW) Urine Bacteria (NEGATIVE) Urine Opiates Screen (NEGATIVE) Ur Oxycodone Screen (NEGATIVE) Urine Methadone Screen (NEGATIVE) Ur Barbiturates Screen (NEGATIVE) Ur Phencyclidine Scrn (NEGATIVE) Ur Amphetamine Screen (NEGATIVE) U Methamphetamines Scrn (NEGATIVE) U Benzodiazepines Scrn (NEGATIVE) U Cocaine Metab Screen (NEGATIVE) U Marijuana (THC) Screen (NEGATIVE) Ethyl Alcohol mg/dL Med Orders - Current: Current Medications Acetaminophen (Tylenol) 650 mg PO Q4H PRN PRN Reason: Pain (mild 1-3) Diltiazem HCl (Diltiazem) 10 mg IVPUSH Q3H PRN PRN Reason: Tachycardia Last Admin: 03/18/19 00:16 Dose: 10 mg Heparin Sodium (Porcine) (Heparin Sodium) 5,000 units SUBCUT Q8H [facility] Last Admin: 03/18/19 08:21 Dose: 5,000 units Sodium Chloride (Normal Saline) 1,000 mls @ 150 mls/hr IV Q6H [facility] Last Admin: 03/18/19 05:54 Dose: 150 mls/hr Ondansetron HCl (Zofran) 4 mg IVPUSH Q4H PRN PRN Reason: Nausea Sodium Chloride (Saline Flush) 10 ml FLUSH ASDIRECTED PRN PRN Reason: Keep Vein Open Sodium Chloride (Saline Flush) 2.5 ml FLUSH ASDIRECTED PRN PRN Reason: Keep Vein Open Sodium Phosphate (Neutra-Phos) 250 mg PO QID [facility] Last Admin: 03/18/19 08:19 Dose: 250 mg Discontinued Medications Sodium Chloride (Normal Saline) 1,000 mls @ 999 mls/hr IV .BOLUS ONE Stop: 03/17/19 13:46 Last Admin: 03/17/19 13:05 Dose: 999 mls/hr Sodium Chloride (Normal Saline) 1,000 mls @ 125 mls/hr IV ASDIRECTED [facility] Last Admin: 03/17/19 13:58 Dose: 125 mls/hr Sodium Chloride (Normal Saline) 1,000 mls @ 999 mls/hr IV .BOLUS ONE Stop: 03/17/19 15:02 Last Admin: 03/17/19 15:35 Dose: 999 mls/hr Magnesium Sulfate 2 gm/ Premix 50 mls @ 50 mls/hr IV ONETIME ONE Stop: 03/18/19 09:05 Last Admin: 03/18/19 08:21 Dose: 50 mls/hr - Exam General: Alert, Oriented (easily forgetful, repeats questions), Cooperative, No Acute Distress Lungs: Clear to Auscultation Cardiovascular: Regular Rate, Regular Rhythm GI/Abdominal Exam: Normal Bowel Sounds, Soft, Non-Tender Extremities: Normal Inspection, Normal Range of Motion, Non-Tender, Pedal Edema (scant to L leg) Skin: Ecchymosis (L hip), Other (multiple abrasions in all healing stages to legs and arms. ) Neurological: No New Focal Deficit Psy/Mental Status: Alert, Normal Affect, Normal Mood Sepsis Event Note - Evaluation Sepsis Screening Result: No Definite Risk - Focused Exam Vital Signs: Vital Signs Temp Pulse Resp BP Pulse Ox 03/18/19 07:15 98 F 85 16 102/52 L 92 L 03/18/19 04:00 98.6 F 86 16 92/51 L 93 L 03/17/19 23:48 99.5 F 89 16 125/54 L 94 L Date Exam was Performed: 03/18/19 Time Exam was Performed: 10:32 - Problem List & Annotations (1) Total self-care deficit SNOMED Code(s): 98059549 Code(s): R68.89 - OTHER GENERAL SYMPTOMS AND SIGNS Status: Acute Current Visit: Yes (2) Weakness SNOMED Code(s): 19296218 Code(s): R53.1 - WEAKNESS Status: Acute Current Visit: Yes (3) Rhabdomyolysis SNOMED Code(s): 121242073 Code(s): M62.82 - RHABDOMYOLYSIS Status: Acute Current Visit: No (4) Syncope and collapse SNOMED Code(s): 927345340 Code(s): R55 - SYNCOPE AND COLLAPSE Status: Acute Current Visit: No (5) Afib SNOMED Code(s): 36962228 Code(s): I48.91 - UNSPECIFIED ATRIAL FIBRILLATION Status: Acute Current Visit: Yes - Problem List Review Problem List Initiated/Reviewed/Updated: Yes - My Orders Last 24 Hours: My Active Orders 03/17/19 14:31 Height and Weight [RC] DAILY May Shower [RC] ASDIRECTED Up With Assistance [RC] ASDIRECTED Consult to Case Management/Produce Buyer [CONS] Routine OT Evaluation and Treatment [CONS] Routine Acetaminophen [Tylenol] 650 mg PO Q4H PRN Ondansetron [Zofran] 4 mg IVPUSH Q4H PRN Resuscitation Status Routine 03/17/19 14:32 Intake and Output [RC] QSHIFT Oxygen Therapy [RC] PRN VTE/DVT Education [RC] PER UNIT ROUTINE Vital Signs [RC] Q4H 03/17/19 14:40 Bladder Scan [RC] ASDIRECTED 03/17/19 14:45 Sodium Chloride 0.9% [Normal Saline] 1,000 ml IV Q6H 03/17/19 14:46 Intake and Output Strict [RC] Q12H 03/17/19 15:15 Heparin Sodium 5,000 units SUBCUT Q8H 03/17/19 17:00 Insert Urinary Catheter [OM.PC] Q24H 03/17/19 Lunch Regular Diet [DIET] 03/18/19 08:00 PT Evaluation and Treatment [CONS] Routine 03/18/19 08:07 Phosphorus #1 [Neutra-Phos] 250 mg PO QID 03/19/19 05:11 CBC WITH AUTO DIFF [HEME] AM COMPREHENSIVE METABOLIC PN,CMP [CHEM] AM CPK [CREATINE KINASE,CK] [CHEM] AM MAGNESIUM [CHEM] AM PHOSPHORUS [CHEM] AM 03/20/19 05:11 CBC WITH AUTO DIFF [HEME] AM COMPREHENSIVE METABOLIC PN,CMP [CHEM] AM CPK [CREATINE KINASE,CK] [CHEM] AM MAGNESIUM [CHEM] AM PHOSPHORUS [CHEM] AM - Plan Plan:: This 78 year old male admitted with syncope and rhabdomyolysis 1. Syncope: Telemetry revealed afib RVR last evening, given Diltiazem x 1 IV, rates is controlled and paroxysmal afib noted. Will start Metoprolol 25 mg BID and monitor. Add ASA. Will obtained ECHO. 2. Rhabdomyolysis: CPK improving, continue IVFs at 150 ml/s hr. Renal function improved and WNL. Will monitor I/O Strictly. UA negative for UTI. 3. Total self care deficit: Consult Social work. Malnutrition suspected, will monitor electrolytes. Will need placement as home is unfit to return to. commissioner of relocation services talked with sister and they will work on [facility]. VTE prophylaxis: Heparin Dispo: 2-3 days.
[2019-03-18] MEDS: Metoprolol Tartrate 25 MG Tab PO SCH ×2 (11:05→22:47)
[2019-03-18] MEDS: Aspirin 81 MG Tab.Chew PO SCH (11:06)
[2019-03-19] MEDS: Sodium Chloride 0.9% 1,000 ML IV SCH ×3 (01:51→08:14)
[2019-03-19] MEDS: Phosphorus #1 250 MG Tab PO SCH ×4 (06:17→23:34)
[2019-03-19] MEDS: Heparin Sodium 5,000 Units/ML Vial SUBCUT SCH ×3 (06:18→23:35)
[2019-03-19 08:06] LABS: BLOOD UREA NITROGEN,BUN 19 mg/dL (7.0-18.0); CARBON DIOXIDE,CO2 21.8 mmol/L (21.0-32.0); CHLORIDE,CL 109 mmol/L (98-107); GLUCOSE RANDOM 109 mg/dL (74-106); POTASSIUM,K 3.7 mmol/L (3.5-5.1); SODIUM,NA 141 mmol/L (136-148)
[2019-03-19] MEDS: Aspirin 81 MG Tab.Chew PO SCH (08:14)
[2019-03-19] MEDS: Metoprolol Tartrate 25 MG Tab PO SCH ×2 (10:00→22:01)
[2019-03-19] MEDS: Fluticasone Propionate Nasal Spray 16 GM Bottle NASBOTH SCH (10:38)
--- NOTE | 2019-03-19 13:24 | PCM.PN ---
- General Info Date of Service: 03/19/19 - Review of Systems Systems Review Comment:: no complaints - Patient Data Vitals - Most Recent: Last Vital Signs Temp 36.2 C 03/19/19 12:14 Pulse 82 03/19/19 12:14 Resp 20 03/19/19 12:14 BP 108/64 03/19/19 12:14 Pulse Ox 91 L 03/19/19 12:14 Weight - Most Recent: 66 kg I&O - Last 24 Hours: Intake & Output 03/18/19 03/19/19 03/19/19 22:59 06:59 14:59 Intake Total 2621 4082 Output Total 300 850 Balance 2321 3232 Lab Results Last 24 Hours: Laboratory Results - last 24 hr 03/19/19 03/19/19 Range/Units 07:29 07:29 WBC 7.18 (4.0-11.0) K/uL RBC 3.61 L (4.50-5.90) M/uL Hgb 11.3 L (13.0-17.0) g/dL Hct 32.8 L (38.0-50.0) % MCV 90.9 (80.0-98.0) fL MCH 31.3 (27.0-32.0) pg MCHC 34.5 (31.0-37.0) g/dL RDW Std Deviation 43.8 (28.0-62.0) fl RDW Coeff of Mary 13 (11.0-15.0) % Plt Count 198 (150-400) K/uL MPV 9.70 (7.40-12.00) fL Neut % (Auto) 72.1 (48.0-80.0) % Lymph % (Auto) 16.3 (16.0-40.0) % [place] % (Auto) 7.9 (0.0-15.0) % Eos % (Auto) 3.3 (0.0-7.0) % Baso % (Auto) 0.4 (0.0-1.5) % Neut # (Auto) 5.2 (1.4-5.7) K/uL Lymph # (Auto) 1.2 (0.6-2.4) K/uL [place] # (Auto) 0.6 (0.0-0.8) K/uL Eos # (Auto) 0.2 (0.0-0.7) K/uL Baso # (Auto) 0.0 (0.0-0.1) K/uL Nucleated RBC % 0.0 /100WBC Nucleated RBCs # 0 K/uL Sodium 141 (136-148) mmol/L Potassium 3.7 (3.5-5.1) mmol/L Chloride 109 H (98-107) mmol/L Carbon Dioxide 21.8 (21.0-32.0) mmol/L BUN 19 H (7.0-18.0) mg/dL Creatinine 0.8 (0.8-1.3) mg/dL Est Cr Clr Drug Dosing 71.04 mL/min Estimated GFR (MDRD) > 60.0 ml/min Glucose 109 H (74-106) mg/dL Calcium 7.4 L (8.5-10.1) mg/dL Phosphorus 2.1 L (2.6-4.7) mg/dL Magnesium 1.7 L (1.8-2.4) mg/dL Total Bilirubin 0.4 (0.2-1.0) mg/dL AST 105 H (15-37) IU/L ALT 86 H (14-63) IU/L Alkaline Phosphatase 71 (46-116) U/L Creatine Kinase 1769 H (26-308) U/L Total Protein 5.8 L (6.4-8.2) g/dL Albumin 2.6 L (3.4-5.0) g/dL Globulin 3.2 (2.6-4.0) g/dL Albumin/Globulin Ratio 0.8 L (0.9-1.6) Med Orders - Current: Current Medications Acetaminophen (Tylenol) 650 mg PO Q4H PRN PRN Reason: Pain (mild 1-3) Last Admin: 03/18/19 23:07 Dose: 650 mg Aspirin (Aspirin) 81 mg PO DAILY [facility] Last Admin: 03/19/19 08:14 Dose: 81 mg Diltiazem HCl (Diltiazem) 10 mg IVPUSH Q3H PRN PRN Reason: Tachycardia Last Admin: 03/18/19 00:16 Dose: 10 mg Fluticasone Propionate (Flonase) 0 gm [place] DAILY [facility] Last Admin: 03/19/19 10:38 Dose: 1 spray Heparin Sodium (Porcine) (Heparin Sodium) 5,000 units SUBCUT Q8H [facility] Last Admin: 03/19/19 06:18 Dose: 5,000 units Metoprolol Tartrate (Lopressor) 25 mg PO Q12H [facility] Last Admin: 03/19/19 10:00 Dose: 25 mg Ondansetron HCl (Zofran) 4 mg IVPUSH Q4H PRN PRN Reason: Nausea Sodium Chloride (Saline Flush) 10 ml FLUSH ASDIRECTED PRN PRN Reason: Keep Vein Open Sodium Chloride (Saline Flush) 2.5 ml FLUSH ASDIRECTED PRN PRN Reason: Keep Vein Open Sodium Phosphate (Neutra-Phos) 250 mg PO QID [facility] Last Admin: 03/19/19 11:33 Dose: 250 mg Discontinued Medications Sodium Chloride (Normal Saline) 1,000 mls @ 999 mls/hr IV .BOLUS ONE Stop: 03/17/19 13:46 Last Admin: 03/17/19 13:05 Dose: 999 mls/hr Sodium Chloride (Normal Saline) 1,000 mls @ 125 mls/hr IV ASDIRECTED [facility] Last Admin: 03/17/19 13:58 Dose: 125 mls/hr Sodium Chloride (Normal Saline) 1,000 mls @ 999 mls/hr IV .BOLUS ONE Stop: 03/17/19 15:02 Last Admin: 03/17/19 15:35 Dose: 999 mls/hr Sodium Chloride (Normal Saline) 1,000 mls @ 150 mls/hr IV Q6H [facility] Last Admin: 03/19/19 08:14 Dose: 150 mls/hr Magnesium Sulfate 2 gm/ Premix 50 mls @ 50 mls/hr IV ONETIME ONE Stop: 03/18/19 09:05 Last Admin: 03/18/19 08:21 Dose: 50 mls/hr - Exam General: Alert, Oriented Neck: Supple Lungs: Clear to Auscultation, Normal Respiratory Effort Cardiovascular: Regular Rate, Regular Rhythm GI/Abdominal Exam: Soft, Non-Tender Extremities: Non-Tender, Pedal Edema (+1 edema) Sepsis Event Note - Evaluation Sepsis Screening Result: No Definite Risk - Focused Exam Vital Signs: Vital Signs Temp Pulse Pulse Resp BP BP Pulse Ox 03/19/19 12:14 36.2 C 82 20 108/64 91 L 03/19/19 10:00 90 105/53 L 03/19/19 07:30 36.7 C 85 20 105/53 L 92 L 03/19/19 04:35 36.7 C 97 20 140/83 90 L Date Exam was Performed: 03/19/19 Time Exam was Performed: 13:21 - Problem List Review Problem List Initiated/Reviewed/Updated: Yes - My Orders Last 24 Hours: My Active Orders 03/19/19 09:09 Communication Order [RC] PRN 03/19/19 10:30 Fluticasone Propionate [Flonase] See Dose Instructions NASBOTH DAILY - Plan Plan:: This 78 year old male admitted with syncope and rhabdomyolysis 2. Rhabdomyolysis: CPK continues to trend down, will stop IV fluids as unlikely to develop ELIZABET and patient has pedal edema. 3. Total self care deficit: Consult Social work. Malnutrition suspected, will monitor electrolytes. Will need placement as home is unfit to return to. director of therapy services talked with sister and they will work on [employer]. VTE prophylaxis: Heparin Dispo: 2-3 days.
[2019-03-19] MEDS ORDERED: Docusate Sodium 100 MG Cap PO PRN (14:21)
--- NOTE | 2019-03-19 16:05 | CR ---
Chest: Portable view of the chest was obtained. Comparison: Prior chest x-ray of 03/17/19. Increasing interstitial change is noted from prior exam. Findings most likely represent moderately severe pulmonary vascular congestion superimposed upon fibrosis. Heart is more enlarged than on prior exam. Possible small bilateral pleural effusions also suggested. Bony structures are grossly intact. Impression: 1. Findings suspicious for CHF with moderate pulmonary edema. This represents an interval change from previous exam. Diagnostic code #5 Study was dictated in [place] Standard Time
[2019-03-19] MEDS: Diltiazem 25 MG/5 ML SDV IVPUSH PRN (16:35)
[2019-03-19] MEDS ORDERED: Furosemide 40 MG/4 ML VIAL IVPUSH ONE (16:51)
[2019-03-19] MEDS ORDERED: Albuterol/Ipratropium 3.0-0.5 MG/3 ML Neb Soln NEB PRN (18:50)
[2019-03-19] MEDS ORDERED: Magnesium Sulfate/Water 2 GM in Premix Bag 1 BAG IV ONE (20:00)
--- NOTE | 2019-03-19 20:03 | PCM.SN ---
- Free Text/Narrative Note: Patient developed hypoxia this evening requiring high flow oxygen, patient is not tachypnic, or in respiratory distress. CXR showed pulmonary edema. Patient likley fluid overload due to IV fluids given in treatment of his rhabdomyolis. IV Fluids d/c this morning. Lasix has been give. Will continue to monitor.
[2019-03-20] MEDS: Heparin Sodium 5,000 Units/ML Vial SUBCUT SCH ×3 (06:15→22:22)
[2019-03-20] MEDS: Phosphorus #1 250 MG Tab PO SCH ×3 (06:16→17:34)
[2019-03-20 06:57] LABS: BLOOD UREA NITROGEN,BUN 19 mg/dL (7.0-18.0); CARBON DIOXIDE,CO2 24.6 mmol/L (21.0-32.0); CHLORIDE,CL 106 mmol/L (98-107); GLUCOSE RANDOM 95 mg/dL (74-106); POTASSIUM,K 3.5 mmol/L (3.5-5.1); SODIUM,NA 141 mmol/L (136-148)
[2019-03-20] MEDS: Aspirin 81 MG Tab.Chew PO SCH (08:17)
[2019-03-20] MEDS: Fluticasone Propionate Nasal Spray 16 GM Bottle NASBOTH SCH (08:17)
--- NOTE | 2019-03-20 08:39 | PCM.PN ---
- General Info Date of Service: 03/20/19 Subjective Update: Patient reports he is doing ok but stated "My mind isn't strong enough to go home, I think I need to go to [place]". Yesterday he developed hypoxia requiring high flow NC, CXR showed overload, lasix given, IVF stopped and oxygen requirement dropped from 15 L to 4L. Patient denies shortness of breath or chest pain. Also had elevated HR in the 150s requiring IV push of Diltiazem. Patient states he couldn't feel his heart racing. - Review of Systems General: Reports: No Symptoms HEENT: Reports: No Symptoms Pulmonary: Reports: No Symptoms Cardiovascular: Reports: No Symptoms Gastrointestinal: Reports: No Symptoms Genitourinary: Reports: No Symptoms Musculoskeletal: Reports: No Symptoms Skin: Reports: No Symptoms Neurological: Reports: No Symptoms Psychiatric: Reports: No Symptoms - Patient Data Vitals - Most Recent: Last Vital Signs Temp 97.7 F 03/20/19 07:30 Pulse 85 03/20/19 07:30 Resp 20 03/20/19 07:30 BP 123/62 03/20/19 07:30 Pulse Ox 94 L 03/20/19 07:30 Weight - Most Recent: 63.4 kg I&O - Last 24 Hours: Intake & Output 03/19/19 03/20/19 03/20/19 22:59 06:59 14:59 Intake Total 1914 450 Output Total 400 2130 Balance 1514 -1680 Lab Results Last 24 Hours: Laboratory Results - last 24 hr 03/20/19 03/20/19 Range/Units 05:58 05:58 WBC 7.76 (4.0-11.0) K/uL RBC 3.70 L (4.50-5.90) M/uL Hgb 11.5 L (13.0-17.0) g/dL Hct 33.4 L (38.0-50.0) % MCV 90.3 (80.0-98.0) fL MCH 31.1 (27.0-32.0) pg MCHC 34.4 (31.0-37.0) g/dL RDW Std Deviation 42.8 (28.0-62.0) fl RDW Coeff of Mary 13 (11.0-15.0) % Plt Count 208 (150-400) K/uL MPV 9.60 (7.40-12.00) fL Neut % (Auto) 70.1 (48.0-80.0) % Lymph % (Auto) 18.0 (16.0-40.0) % Major % (Auto) 8.1 (0.0-15.0) % Eos % (Auto) 3.5 (0.0-7.0) % Baso % (Auto) 0.3 (0.0-1.5) % Neut # (Auto) 5.4 (1.4-5.7) K/uL Lymph # (Auto) 1.4 (0.6-2.4) K/uL Major # (Auto) 0.6 (0.0-0.8) K/uL Eos # (Auto) 0.3 (0.0-0.7) K/uL Baso # (Auto) 0.0 (0.0-0.1) K/uL Nucleated RBC % 0.0 /100WBC Nucleated RBCs # 0 K/uL Sodium 141 (136-148) mmol/L Potassium 3.5 (3.5-5.1) mmol/L Chloride 106 (98-107) mmol/L Carbon Dioxide 24.6 (21.0-32.0) mmol/L BUN 19 H (7.0-18.0) mg/dL Creatinine 0.9 (0.8-1.3) mg/dL Est Cr Clr Drug Dosing 60.66 mL/min Estimated GFR (MDRD) > 60.0 ml/min Glucose 95 (74-106) mg/dL Calcium 7.8 L (8.5-10.1) mg/dL Phosphorus 3.1 (2.6-4.7) mg/dL Magnesium 2.1 (1.8-2.4) mg/dL Total Bilirubin 0.6 (0.2-1.0) mg/dL AST 82 H (15-37) IU/L ALT 87 H (14-63) IU/L Alkaline Phosphatase 73 (46-116) U/L Creatine Kinase 1106 H (26-308) U/L Total Protein 6.1 L (6.4-8.2) g/dL Albumin 2.7 L (3.4-5.0) g/dL Globulin 3.4 (2.6-4.0) g/dL Albumin/Globulin Ratio 0.8 L (0.9-1.6) Med Orders - Current: Current Medications Acetaminophen (Tylenol) 650 mg PO Q4H PRN PRN Reason: Pain (mild 1-3) Last Admin: 03/18/19 23:07 Dose: 650 mg Albuterol/Ipratropium (Duoneb 3.0-0.5 Mg/3 Ml) 3 ml NEB Q6HRRT PRN PRN Reason: Dyspnea Last Admin: 03/19/19 19:07 Dose: 3 ml Aspirin (Aspirin) 81 mg PO DAILY [facility] Last Admin: 03/20/19 08:17 Dose: 81 mg Diltiazem HCl (Diltiazem) 10 mg IVPUSH Q3H PRN PRN Reason: Tachycardia Last Admin: 03/19/19 16:35 Dose: 10 mg Docusate Sodium (Colace) 100 mg PO DAILY PRN PRN Reason: Constipation Fluticasone Propionate (Flonase) 0 gm NASBOTH DAILY [facility] Last Admin: 03/20/19 08:17 Dose: 1 spray Heparin Sodium (Porcine) (Heparin Sodium) 5,000 units SUBCUT Q8H [facility] Last Admin: 03/20/19 06:15 Dose: 5,000 units Metoprolol Tartrate (Lopressor) 25 mg PO Q12H [facility] Last Admin: 03/19/19 22:01 Dose: 25 mg Ondansetron HCl (Zofran) 4 mg IVPUSH Q4H PRN PRN Reason: Nausea Sodium Chloride (Saline Flush) 10 ml FLUSH ASDIRECTED PRN PRN Reason: Keep Vein Open Sodium Chloride (Saline Flush) 2.5 ml FLUSH ASDIRECTED PRN PRN Reason: Keep Vein Open Sodium Phosphate (Neutra-Phos) 250 mg PO QID [facility] Last Admin: 03/20/19 06:16 Dose: 250 mg Discontinued Medications Furosemide (Lasix) 40 mg IVPUSH NOW ONE Stop: 03/19/19 16:52 Last Admin: 03/19/19 17:08 Dose: 40 mg Sodium Chloride (Normal Saline) 1,000 mls @ 999 mls/hr IV .BOLUS ONE Stop: 03/17/19 13:46 Last Admin: 03/17/19 13:05 Dose: 999 mls/hr Sodium Chloride (Normal Saline) 1,000 mls @ 125 mls/hr IV ASDIRECTED [facility] Last Admin: 03/17/19 13:58 Dose: 125 mls/hr Sodium Chloride (Normal Saline) 1,000 mls @ 999 mls/hr IV .BOLUS ONE Stop: 03/17/19 15:02 Last Admin: 03/17/19 15:35 Dose: 999 mls/hr Sodium Chloride (Normal Saline) 1,000 mls @ 150 mls/hr IV Q6H [facility] Last Admin: 03/19/19 08:14 Dose: 150 mls/hr Magnesium Sulfate 2 gm/ Premix 50 mls @ 50 mls/hr IV ONETIME ONE Stop: 03/18/19 09:05 Last Admin: 03/18/19 08:21 Dose: 50 mls/hr Magnesium Sulfate 2 gm/ Premix 50 mls @ 50 mls/hr IV ONETIME ONE Stop: 03/19/19 20:59 Last Admin: 03/19/19 21:13 Dose: 50 mls/hr - Exam Quality Assessment: Supplemental Oxygen General: Alert, Cooperative Lungs: Normal Respiratory Effort, Crackles Cardiovascular: Regular Rate, Regular Rhythm GI/Abdominal Exam: Normal Bowel Sounds, Soft, Non-Tender, No Distention Extremities: No Pedal Edema Skin: Warm, Dry Neurological: No New Focal Deficit Psy/Mental Status: Alert, Normal Affect, Normal Mood Sepsis Event Note - Evaluation Sepsis Screening Result: No Definite Risk - Focused Exam Vital Signs: Vital Signs Temp Pulse Pulse Resp BP BP Pulse Ox 03/20/19 07:30 97.7 F 85 20 123/62 94 L 03/20/19 04:58 97.6 F 82 20 152/65 H 95 03/20/19 01:30 94 L 03/19/19 23:42 97.7 F 82 18 136/69 96 03/19/19 22:05 97 03/19/19 22:01 86 132/62 03/19/19 21:25 99 Date Exam was Performed: 03/20/19 Time Exam was Performed: 10:33 - Problem List Review Problem List Initiated/Reviewed/Updated: Yes - Plan Plan:: This 78 year old male admitted with syncope and rhabdomyolysis 1. Rhabdomyolysis: CPK continues to trend down 2. Hypoxia: likely due to fluid overload- CXR showed moderate pulmonary edema. Was requiring 15 L of O2 but after Lasix down to 4L. Will give additional dose of Lasix today and wean oxygen as tolerated. Will order echo. 3. Afib- on metoprolol 25 bid and ASA. Continue to monitor on telemetry 4. Total self care deficit: Consult Social work. Malnutrition suspected, will monitor electrolytes. Will need placement as home is unfit to return to. services clerk talked with sister and they will work on [employer]. PT/OT ordered. VTE prophylaxis: Heparin Dispo: 2-3 days.
[2019-03-20] MEDS: Metoprolol Tartrate 25 MG Tab PO SCH ×2 (09:58→22:19)
[2019-03-20] MEDS ORDERED: Furosemide 40 MG/4 ML VIAL IVPUSH ONE (10:00)
[2019-03-21] MEDS: Phosphorus #1 250 MG Tab PO SCH ×4 (00:16→18:18)
[2019-03-21] MEDS: Heparin Sodium 5,000 Units/ML Vial SUBCUT SCH ×3 (06:56→22:30)
--- NOTE | 2019-03-21 09:31 | PCM.PN ---
- General Info Date of Service: 03/21/19 Admission Dx/Problem (Free Text): Admission Diagnosis/Problem Admission Diagnosis/Problem Syncope and collapse Subjective Update: Feels a little stomach ache, but is eating and drinking. No chest pain or SOB. Reports feeling otherwise ok. Denies any concerns. Functional Status: Reports: Pain Controlled, Tolerating Diet, Ambulating, Urinating - Review of Systems HEENT: Reports: No Symptoms. Denies: Headaches, Visual Changes Pulmonary: Reports: No Symptoms. Denies: Shortness of Breath Gastrointestinal: Reports: No Symptoms. Denies: Abdominal Pain Genitourinary: Reports: No Symptoms. Denies: Dysuria, Frequency Musculoskeletal: Reports: No Symptoms Skin: Reports: No Symptoms Neurological: Reports: No Symptoms Psychiatric: Reports: No Symptoms - Patient Data Vitals - Most Recent: Last Vital Signs Temp 97.6 F 03/21/19 08:00 Pulse 88 03/21/19 08:00 Resp 16 03/21/19 08:00 BP 124/55 L 03/21/19 08:00 Pulse Ox 90 L 03/21/19 08:00 Weight - Most Recent: 62.4 kg I&O - Last 24 Hours: Intake & Output 03/20/19 03/21/19 03/21/19 22:59 06:59 14:59 Intake Total 600 360 Output Total 1375 1005 Balance -775 -645 Med Orders - Current: Current Medications Acetaminophen (Tylenol) 650 mg PO Q4H PRN PRN Reason: Pain (mild 1-3) Last Admin: 03/18/19 23:07 Dose: 650 mg Albuterol/Ipratropium (Duoneb 3.0-0.5 Mg/3 Ml) 3 ml NEB Q6HRRT PRN PRN Reason: Dyspnea Last Admin: 03/19/19 19:07 Dose: 3 ml Aspirin (Aspirin) 81 mg PO DAILY [facility] Last Admin: 03/20/19 08:17 Dose: 81 mg Diltiazem HCl (Diltiazem) 10 mg IVPUSH Q3H PRN PRN Reason: Tachycardia Last Admin: 03/19/19 16:35 Dose: 10 mg Docusate Sodium (Colace) 100 mg PO DAILY PRN PRN Reason: Constipation Fluticasone Propionate (Flonase) 0 gm NASBOTH DAILY [facility] Last Admin: 03/20/19 08:17 Dose: 1 spray Heparin Sodium (Porcine) (Heparin Sodium) 5,000 units SUBCUT Q8H [facility] Last Admin: 03/21/19 06:56 Dose: 5,000 units Metoprolol Tartrate (Lopressor) 25 mg PO Q12H [facility] Last Admin: 03/20/19 22:19 Dose: 25 mg Ondansetron HCl (Zofran) 4 mg IVPUSH Q4H PRN PRN Reason: Nausea Sodium Chloride (Saline Flush) 10 ml FLUSH ASDIRECTED PRN PRN Reason: Keep Vein Open Sodium Chloride (Saline Flush) 2.5 ml FLUSH ASDIRECTED PRN PRN Reason: Keep Vein Open Sodium Phosphate (Neutra-Phos) 250 mg PO QID [facility] Last Admin: 03/21/19 06:55 Dose: 250 mg Discontinued Medications Furosemide (Lasix) 40 mg IVPUSH NOW ONE Stop: 03/19/19 16:52 Last Admin: 03/19/19 17:08 Dose: 40 mg Furosemide (Lasix) 40 mg IVPUSH NOW ONE Stop: 03/20/19 10:01 Last Admin: 03/20/19 10:32 Dose: 40 mg Sodium Chloride (Normal Saline) 1,000 mls @ 999 mls/hr IV .BOLUS ONE Stop: 03/17/19 13:46 Last Admin: 03/17/19 13:05 Dose: 999 mls/hr Sodium Chloride (Normal Saline) 1,000 mls @ 125 mls/hr IV ASDIRECTED [facility] Last Admin: 03/17/19 13:58 Dose: 125 mls/hr Sodium Chloride (Normal Saline) 1,000 mls @ 999 mls/hr IV .BOLUS ONE Stop: 03/17/19 15:02 Last Admin: 03/17/19 15:35 Dose: 999 mls/hr Sodium Chloride (Normal Saline) 1,000 mls @ 150 mls/hr IV Q6H [facility] Last Admin: 03/19/19 08:14 Dose: 150 mls/hr Magnesium Sulfate 2 gm/ Premix 50 mls @ 50 mls/hr IV ONETIME ONE Stop: 03/18/19 09:05 Last Admin: 03/18/19 08:21 Dose: 50 mls/hr Magnesium Sulfate 2 gm/ Premix 50 mls @ 50 mls/hr IV ONETIME ONE Stop: 03/19/19 20:59 Last Admin: 03/19/19 21:13 Dose: 50 mls/hr - Exam Quality Assessment: No: Supplemental Oxygen General: Alert, Oriented Lungs: Clear to Auscultation, Normal Respiratory Effort Cardiovascular: Regular Rate, Regular Rhythm GI/Abdominal Exam: Normal Bowel Sounds, Soft, Non-Tender Extremities: Normal Inspection, Normal Range of Motion, Non-Tender, No Pedal Edema Neurological: No New Focal Deficit Psy/Mental Status: Alert, Normal Affect, Normal Mood Sepsis Event Note - Evaluation Sepsis Screening Result: No Definite Risk - Focused Exam Vital Signs: Vital Signs Temp Pulse Pulse Resp BP BP Pulse Ox 03/21/19 08:00 97.6 F 88 16 124/55 L 90 L 03/21/19 05:00 03/21/19 04:00 97.8 F 79 21 H 108/56 L 91 L 03/21/19 00:24 97.6 F 91 20 139/73 90 L 03/20/19 22:19 92 129/78 Pulse Ox 03/21/19 08:00 03/21/19 05:00 91 L 03/21/19 04:00 03/21/19 00:24 03/20/19 22:19 Date Exam was Performed: 03/21/19 Time Exam was Performed: 13:31 - Problem List & Annotations (1) Total self-care deficit SNOMED Code(s): 95016525 Code(s): R68.89 - OTHER GENERAL SYMPTOMS AND SIGNS Status: Acute Current Visit: Yes (2) Weakness SNOMED Code(s): 89128594 Code(s): R53.1 - WEAKNESS Status: Acute Current Visit: Yes (3) Rhabdomyolysis SNOMED Code(s): 038598655 Code(s): M62.82 - RHABDOMYOLYSIS Status: Acute Current Visit: No (4) Syncope and collapse SNOMED Code(s): 493392197 Code(s): R55 - SYNCOPE AND COLLAPSE Status: Acute Current Visit: No (5) Afib SNOMED Code(s): 08386635 Code(s): I48.91 - UNSPECIFIED ATRIAL FIBRILLATION Status: Acute Current Visit: Yes - Problem List Review Problem List Initiated/Reviewed/Updated: Yes - Plan Plan:: This 78 year old male admitted with syncope and rhabdomyolysis 1. Rhabdomyolysis: CPK continues to trend down. HOLD IVF for now. Monitor. CPK 900 today. 2. Hypoxia: resolved, likely secondary to overload. Off oxygen now. ECHO stable , no CHF noted. 3. Afib- on metoprolol 25 bid and ASA. Continue to monitor on telemetry 4. Total self care deficit: Consult Social work. Malnutrition suspected, will monitor electrolytes. Will need placement as home is unfit to return to. janitorial services supervisor talked with sister and they will work on [employer] PT/OT ordered. VTE prophylaxis: Heparin Dispo: 2-3 days.
[2019-03-21] MEDS ORDERED: Pantoprazole 40 MG in Sodium Chloride 0.9% 10 ML IV ONE (10:00)
[2019-03-21 10:27] LABS: BLOOD UREA NITROGEN,BUN 28 mg/dL (7.0-18.0); CARBON DIOXIDE,CO2 25.7 mmol/L (21.0-32.0); CHLORIDE,CL 104 mmol/L (98-107); GLUCOSE RANDOM 158 mg/dL (74-106); POTASSIUM,K 3.6 mmol/L (3.5-5.1); SODIUM,NA 139 mmol/L (136-148)
[2019-03-21] MEDS: Metoprolol Tartrate 25 MG Tab PO SCH ×2 (11:13→22:27)
[2019-03-21] MEDS: Fluticasone Propionate Nasal Spray 16 GM Bottle NASBOTH SCH (11:17)
[2019-03-21] MEDS: Aspirin 81 MG Tab.Chew PO SCH (11:17)
[2019-03-22] MEDS: Phosphorus #1 250 MG Tab PO SCH ×3 (00:56→11:19)
[2019-03-22 05:45] LABS: BLOOD UREA NITROGEN,BUN 23 mg/dL (7.0-18.0); CARBON DIOXIDE,CO2 25.1 mmol/L (21.0-32.0); CHLORIDE,CL 106 mmol/L (98-107); GLUCOSE RANDOM 94 mg/dL (74-106); POTASSIUM,K 4.2 mmol/L (3.5-5.1); SODIUM,NA 139 mmol/L (136-148)
[2019-03-22] MEDS: Heparin Sodium 5,000 Units/ML Vial SUBCUT SCH ×3 (06:25→22:37)
[2019-03-22] MEDS ORDERED: Magnesium Sulfate/Water 2 GM in Premix Bag 1 BAG IV ONE (08:15)
[2019-03-22] MEDS: Aspirin 81 MG Tab.Chew PO SCH (08:15)
[2019-03-22] MEDS: Fluticasone Propionate Nasal Spray 16 GM Bottle NASBOTH SCH (08:15)
--- NOTE | 2019-03-22 09:50 | PCM.PN ---
- General Info Date of Service: 03/22/19 Admission Dx/Problem (Free Text): Admission Diagnosis/Problem Admission Diagnosis/Problem Syncope and collapse Subjective Update: Reports doing well today. No chest pain or SOB. - Review of Systems General: Reports: No Symptoms HEENT: Reports: No Symptoms Pulmonary: Reports: No Symptoms. Denies: Shortness of Breath Cardiovascular: Reports: No Symptoms. Denies: Chest Pain Genitourinary: Reports: No Symptoms Skin: Reports: No Symptoms Neurological: Reports: No Symptoms Psychiatric: Reports: No Symptoms - Patient Data Vitals - Most Recent: Last Vital Signs Temp 97.9 F 03/22/19 07:28 Pulse 82 03/22/19 07:28 Resp 14 03/22/19 07:28 BP 133/64 03/22/19 07:28 Pulse Ox 94 L 03/22/19 07:28 Weight - Most Recent: 61.5 kg I&O - Last 24 Hours: Intake & Output 03/21/19 03/22/19 03/22/19 22:59 06:59 14:59 Intake Total 500 350 410 Output Total 50 450 Balance 450 -100 410 Lab Results Last 24 Hours: Laboratory Results - last 24 hr 03/21/19 03/21/19 03/21/19 Range/Units 09:54 09:54 09:54 WBC 6.45 (4.0-11.0) K/uL RBC 3.58 L (4.50-5.90) M/uL Hgb 11.0 L (13.0-17.0) g/dL Hct 32.4 L (38.0-50.0) % MCV 90.5 (80.0-98.0) fL MCH 30.7 (27.0-32.0) pg MCHC 34.0 (31.0-37.0) g/dL RDW Std Deviation 43.3 (28.0-62.0) fl RDW Coeff of Mary 13 (11.0-15.0) % Plt Count 227 (150-400) K/uL MPV 9.60 (7.40-12.00) fL Neut % (Auto) 71.9 (48.0-80.0) % Lymph % (Auto) 16.0 (16.0-40.0) % Dubois % (Auto) 7.6 (0.0-15.0) % Eos % (Auto) 4.2 (0.0-7.0) % Baso % (Auto) 0.3 (0.0-1.5) % Neut # (Auto) 4.6 (1.4-5.7) K/uL Lymph # (Auto) 1.0 (0.6-2.4) K/uL Dubois # (Auto) 0.5 (0.0-0.8) K/uL Eos # (Auto) 0.3 (0.0-0.7) K/uL Baso # (Auto) 0.0 (0.0-0.1) K/uL Nucleated RBC % 0.0 /100WBC Nucleated RBCs # 0 K/uL Sodium 139 (136-148) mmol/L Potassium 3.6 (3.5-5.1) mmol/L Chloride 104 (98-107) mmol/L Carbon Dioxide 25.7 (21.0-32.0) mmol/L BUN 28 H (7.0-18.0) mg/dL Creatinine 1.0 (0.8-1.3) mg/dL Est Cr Clr Drug Dosing 53.73 mL/min Estimated GFR (MDRD) > 60.0 ml/min Glucose 158 H (74-106) mg/dL Calcium 8.3 L (8.5-10.1) mg/dL Phosphorus 3.5 (2.6-4.7) mg/dL Magnesium (1.8-2.4) mg/dL Creatine Kinase 900 H (26-308) U/L 03/22/19 Range/Units 05:00 WBC (4.0-11.0) K/uL RBC (4.50-5.90) M/uL Hgb (13.0-17.0) g/dL Hct (38.0-50.0) % MCV (80.0-98.0) fL MCH (27.0-32.0) pg MCHC (31.0-37.0) g/dL RDW Std Deviation (28.0-62.0) fl RDW Coeff of Mary (11.0-15.0) % Plt Count (150-400) K/uL MPV (7.40-12.00) fL Neut % (Auto) (48.0-80.0) % Lymph % (Auto) (16.0-40.0) % Dubois % (Auto) (0.0-15.0) % Eos % (Auto) (0.0-7.0) % Baso % (Auto) (0.0-1.5) % Neut # (Auto) (1.4-5.7) K/uL Lymph # (Auto) (0.6-2.4) K/uL Dubois # (Auto) (0.0-0.8) K/uL Eos # (Auto) (0.0-0.7) K/uL Baso # (Auto) (0.0-0.1) K/uL Nucleated RBC % /100WBC Nucleated RBCs # K/uL Sodium 139 (136-148) mmol/L Potassium 4.2 (3.5-5.1) mmol/L Chloride 106 (98-107) mmol/L Carbon Dioxide 25.1 (21.0-32.0) mmol/L BUN 23 H (7.0-18.0) mg/dL Creatinine 1.0 (0.8-1.3) mg/dL Est Cr Clr Drug Dosing 53.73 mL/min Estimated GFR (MDRD) > 60.0 ml/min Glucose 94 (74-106) mg/dL Calcium 8.1 L (8.5-10.1) mg/dL Phosphorus (2.6-4.7) mg/dL Magnesium 1.7 L (1.8-2.4) mg/dL Creatine Kinase 726 H (26-308) U/L Med Orders - Current: Current Medications Acetaminophen (Tylenol) 650 mg PO Q4H PRN PRN Reason: Pain (mild 1-3) Last Admin: 03/18/19 23:07 Dose: 650 mg Albuterol/Ipratropium (Duoneb 3.0-0.5 Mg/3 Ml) 3 ml NEB Q6HRRT PRN PRN Reason: Dyspnea Last Admin: 03/19/19 19:07 Dose: 3 ml Aspirin (Aspirin) 81 mg PO DAILY [facility] Last Admin: 03/22/19 08:15 Dose: 81 mg Diltiazem HCl (Diltiazem) 10 mg IVPUSH Q3H PRN PRN Reason: Tachycardia Last Admin: 03/19/19 16:35 Dose: 10 mg Docusate Sodium (Colace) 100 mg PO DAILY PRN PRN Reason: Constipation Fluticasone Propionate (Flonase) 0 gm NASBOTH DAILY [facility]S [facility] BEDS AT [facility] Last Admin: 03/22/19 08:15 Dose: 1 spray Heparin Sodium (Porcine) (Heparin Sodium) 5,000 units SUBCUT Q8H [facility]S [facility]CLUDE 234 BEDS AT THE [facility] Last Admin: 03/22/19 06:25 Dose: 5,000 units Metoprolol Tartrate (Lopressor) 25 mg PO Q12H [facility]S INCLUDE 234 BEDS AT THE [facility] Last Admin: 03/21/19 22:27 Dose: 25 mg Ondansetron HCl (Zofran) 4 mg IVPUSH Q4H PRN PRN Reason: Nausea Sodium Chloride (Saline Flush) 10 ml FLUSH ASDIRECTED PRN PRN Reason: Keep Vein Open Sodium Chloride (Saline Flush) 2.5 ml FLUSH ASDIRECTED PRN PRN Reason: Keep Vein Open Sodium Phosphate (Neutra-Phos) 250 mg PO QID [facility]S INCLUDE 234 BEDS AT THE [facility] Last Admin: 03/22/19 06:22 Dose: 250 mg Discontinued Medications Furosemide (Lasix) 40 mg IVPUSH NOW ONE Stop: 03/19/19 16:52 Last Admin: 03/19/19 17:08 Dose: 40 mg Furosemide (Lasix) 40 mg IVPUSH NOW ONE Stop: 03/20/19 10:01 Last Admin: 03/20/19 10:32 Dose: 40 mg Sodium Chloride (Normal Saline) 1,000 mls @ 999 mls/hr IV .BOLUS ONE Stop: 03/17/19 13:46 Last Admin: 03/17/19 13:05 Dose: 999 mls/hr Sodium Chloride (Normal Saline) 1,000 mls @ 125 mls/hr IV ASDIRECTED COUNTS INCLUDE 234 BEDS AT THE [facility] Last Admin: 03/17/19 13:58 Dose: 125 mls/hr Sodium Chloride (Normal Saline) 1,000 mls @ 999 mls/hr IV .BOLUS ONE Stop: 03/17/19 15:02 Last Admin: 03/17/19 15:35 Dose: 999 mls/hr Sodium Chloride (Normal Saline) 1,000 mls @ 150 mls/hr IV Q6H [facility]S INCLUDE 234 BEDS AT [facility] Last Admin: 03/19/19 08:14 Dose: 150 mls/hr Magnesium Sulfate 2 gm/ Premix 50 mls @ 50 mls/hr IV ONETIME ONE Stop: 03/18/19 09:05 Last Admin: 03/18/19 08:21 Dose: 50 mls/hr Magnesium Sulfate 2 gm/ Premix 50 mls @ 50 mls/hr IV ONETIME ONE Stop: 03/19/19 20:59 Last Admin: 03/19/19 21:13 Dose: 50 mls/hr Pantoprazole Sodium 40 mg/ (Sodium Chloride) 10 mls @ 300 mls/hr IV NOW ONE Stop: 03/21/19 10:01 Last Admin: 03/21/19 11:17 Dose: 300 mls/hr Magnesium Sulfate 2 gm/ Premix 50 mls @ 50 mls/hr IV ONETIME ONE Stop: 03/22/19 09:14 Last Admin: 03/22/19 08:21 Dose: 50 mls/hr - Exam General: Alert, Oriented, Cooperative, No Acute Distress Lungs: Clear to Auscultation, Normal Respiratory Effort Cardiovascular: Regular Rate, Regular Rhythm GI/Abdominal Exam: Normal Bowel Sounds, Soft, Non-Tender Extremities: Pedal Edema (+1 to LLE, non pitting) Neurological: No New Focal Deficit Psy/Mental Status: Alert, Normal Affect, Normal Mood Sepsis Event Note - Evaluation Sepsis Screening Result: No Definite Risk - Focused Exam Vital Signs: Vital Signs Temp Pulse Pulse Resp BP BP Pulse Ox 03/22/19 07:28 97.9 F 82 14 133/64 94 L 03/22/19 03:15 97.9 F 78 18 104/56 L 94 L 03/22/19 00:00 98.5 F 80 20 117/54 L 94 L 03/21/19 22:27 90 125/60 Date Exam was Performed: 03/22/19 Time Exam was Performed: 12:39 - Problem List & Annotations (1) Total self-care deficit SNOMED Code(s): 50939461 Code(s): R68.89 - OTHER GENERAL SYMPTOMS AND SIGNS Status: Acute Current Visit: Yes (2) Weakness SNOMED Code(s): 21338004 Code(s): R53.1 - WEAKNESS Status: Acute Current Visit: Yes (3) Rhabdomyolysis SNOMED Code(s): 981392953 Code(s): M62.82 - RHABDOMYOLYSIS Status: Acute Current Visit: No (4) Syncope and collapse SNOMED Code(s): 610510785 Code(s): R55 - SYNCOPE AND COLLAPSE Status: Acute Current Visit: No (5) Afib SNOMED Code(s): 50193146 Code(s): I48.91 - UNSPECIFIED ATRIAL FIBRILLATION Status: Acute Current Visit: Yes - Problem List Review Problem List Initiated/Reviewed/Updated: Yes - My Orders Last 24 Hours: My Active Orders 03/22/19 09:24 Impregnator Electrolytic Capacitors Discontinue [Cardiac Monitoring Discontinue] [RC] Click to Edit 03/23/19 05:11 BASIC METABOLIC PANEL,BMP [CHEM] AM CPK [CREATINE KINASE,CK] [CHEM] AM MAGNESIUM [CHEM] AM - Plan Plan:: This 78 year old male admitted with syncope and rhabdomyolysis 1. Rhabdomyolysis: CPK continues to trend down. CPK 700 today 2. Afib- on metoprolol 25 bid and ASA. Continue to monitor on telemetry 3. Total self care deficit: Consult Social work. Malnutrition suspected, will monitor electrolytes. Will need placement as home is unfit to return to. patient services clerk talked with sister and they will work on [employer] application. PT/OT ordered. VTE prophylaxis: Heparin Dispo: Jorge in am
[2019-03-22] MEDS: Metoprolol Tartrate 25 MG Tab PO SCH ×2 (11:19→22:34)
--- NOTE | 2019-03-22 14:23 | ECHO ---
EXAM DATE: 03/17/19 PATIENT'S AGE: 78 The echocardiogram report can be seen in this patient's EMR (Electronic Medical Record) in the Reports section. The report has also been scanned into PACs. FORTUNATO
[2019-03-23] MEDS: Heparin Sodium 5,000 Units/ML Vial SUBCUT SCH (07:57)
--- NOTE | 2019-03-23 08:47 | PCM.DCSUM1 ---
Discharge Summary - Hospital Course Brief History: This 78 year old male with no past medical history reports presented to the ED via EMS after being found by neighbors lying on the ground and unable to get up. He reports he fell and had been laying there for a couple hours. He is unsure how he fell down, isn't sure he fully passed out. He might had hit his head but isn't sure. He states he feels his legs just gave out. He denies chest pain, but reports it hurting when he takes a deep breath in. No abdominal pain. Reports concerns urinating at times. No shortness of breath or cough. No sore throat or sinus congestion. No neck pain. He reports L and R hip pain. He denies alcohol or tobacco use and no recreational drug use. 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 In the ED CBC WNL, AST and ALT slightly elevated. Troponin negative. EKG SR mild ST elevation, lead II, III but no chest pain. CPK elevated 3900. He was given IVFs x 1 L NS in the ED. He will be admitted for possible syncope and rhabdomyolysis. Diagnosis: Stroke: No - Discharge Data Discharge Date: 03/23/19 Discharge Disposition: DC/Tfer to SNF 03 Condition: Good - Referral to Home Health Primary Care Physician: PCP Unknown - Discharge Diagnosis/Problem(s) (1) Total self-care deficit SNOMED Code(s): 97788972 ICD Code: R68.89 - OTHER GENERAL SYMPTOMS AND SIGNS Status: Acute Current Visit: Yes (2) Weakness SNOMED Code(s): 85651008 ICD Code: R53.1 - WEAKNESS Status: Acute Current Visit: Yes (3) Rhabdomyolysis SNOMED Code(s): 893454774 ICD Code: M62.82 - RHABDOMYOLYSIS Status: Acute Current Visit: No (4) Syncope and collapse SNOMED Code(s): 854405818 ICD Code: R55 - SYNCOPE AND COLLAPSE Status: Acute Current Visit: No (5) Afib SNOMED Code(s): 51690989 ICD Code: I48.91 - UNSPECIFIED ATRIAL FIBRILLATION Status: Acute Current Visit: Yes - Patient Summary/Data Consults: Consultations 03/17/19 14:31 Consult to Case Management/Hide Splitter [CONS] Routine OT Evaluation and Treatment [CONS] Routine 03/18/19 08:00 PT Evaluation and Treatment [CONS] Routine - Patient Instructions Diet: Regular Diet as Tolerated Activity: As Tolerated Driving: Do Not Drive Showering/Bathing: May Shower Notify Provider of: Fever, Increased Pain, Swelling and Redness, Drainage, Nausea and/or Vomiting Other/Special Instructions: PT/OT/ST to evaluate and treat - Discharge Plan *PRESCRIPTION DRUG MONITORING PROGRAM REVIEWED*: Not Applicable *COPY OF PRESCRIPTION DRUG MONITORING REPORT IN PATIENT DRAKE: Not Applicable Prescriptions/Med Rec: Acetaminophen [Tylenol] 650 mg PO Q4H PRN #30 tablet PRN Reason: Pain Aspirin 81 mg PO DAILY #30 tab.chew Docusate Sodium [Colace] 100 mg PO DAILY PRN #15 cap PRN Reason: Constipation Fluticasone Propionate [Flonase] 1 spray NASBOTH DAILY #1 bottle Metoprolol Tartrate [Lopressor] 25 mg PO Q12H #60 tablet Home Medications: Home Meds Acetaminophen [Tylenol] 650 mg PO Q4H PRN #30 tablet 03/22/19 [Rx] Aspirin 81 mg PO DAILY #30 tab.chew 03/22/19 [Rx] Docusate Sodium [Colace] 100 mg PO DAILY PRN #15 cap 03/22/19 [Rx] Fluticasone Propionate [Flonase] 1 spray NASBOTH DAILY #1 bottle 03/22/19 [Rx] Metoprolol Tartrate [Lopressor] 25 mg PO Q12H #60 tablet 03/22/19 [Rx] Oxygen Therapy Mode: Room Air Patient Handouts: Rhabdomyolysis, Metoprolol tablets, Fluticasone nasal spray, Acetaminophen tablets or caplets, Docusate capsules, Aspirin capsules or tablets extended release Referrals: Janeen Wong MD [Ordering Only Provider] - Toby Gonzalez MD [Physician] - 03/24/19 - Discharge Summary/Plan Comment DC Time >30 min.: No Discharge Summary/Plan Comment: Admitting Diagnoses: Syncope- suspected Rhabdomyolysis Total self care deficit Discharge Diagnoses: Syncope- suspected Rhabdomyolysis Total self care deficit Afib Other PMH; Basal cell carcinoma L eye lid Don was admitted secondary to being found on the floor after possibly passing out. He lives alone and likely has some dementia so he is unsure of what happened. On admission he was noted to have elevated CPK levels due to lying on the ground for multiple hours. He was treated with IVFs and lasic for some overload, CPK has continued to improve and last checked it was 700. No ELIZABET noted from rhabdo. During stay telemetry revealed Afib with RVR, given Diltiazem x 1 which he remained rate controlled and was placed on metoprolol 25 mg BID. He was also placed on ASA for stroke prevention. His house was noted not a safe place for him to return, family has been involved to help fix his house up in order for him to return. Until then he will be transitioned to [facility] for rehabilitation. He was been up with PT and nursing, needing assistance of walker and 1 to ambulate. I spoke with Dr Gonzalez regarding admission to [place], he has kindly accepted care upon discharge. Regarding basal cell carcinoma, we did reach out to Dr Orozco's clinic, in which they stated they had previously removed this and it has returned and is too large for them remove and had referred him to Dr Wong in Plastic surgery, but he never went to this appointment. We will send referral to Dr Wong in [place] for evaluation of this basal cell carcinoma. - General Info Date of Service: 03/23/19 Admission Dx/Problem (Free Text: Admission Diagnosis/Problem Admission Diagnosis/Problem Syncope and collapse Subjective Update: Doing ok this morning, no complaints. Functional Status: Reports: Pain Controlled, Tolerating Diet, Ambulating, Urinating - Review of Systems HEENT: Reports: No Symptoms. Denies: Headaches, Sore Throat Pulmonary: Reports: No Symptoms. Denies: Shortness of Breath Cardiovascular: Reports: No Symptoms. Denies: Chest Pain Gastrointestinal: Reports: No Symptoms. Denies: Abdominal Pain, Nausea, Vomiting Musculoskeletal: Reports: No Symptoms Skin: Reports: No Symptoms Neurological: Reports: No Symptoms Psychiatric: Reports: No Symptoms - Patient Data Vitals - Most Recent: Last Vital Signs Temp 97.7 F 03/23/19 08:00 Pulse 85 03/23/19 08:00 Resp 18 03/23/19 08:00 BP 115/57 L 03/23/19 08:00 Pulse Ox 95 03/23/19 08:00 Weight - Most Recent: 62.5 kg I&O - Last 24 hours: Intake & Output 03/22/19 03/23/19 03/23/19 22:59 06:59 14:59 Intake Total 672 800 Output Total 200 480 Balance 472 320 Med Orders - Current: Current Medications Acetaminophen (Tylenol) 650 mg PO Q4H PRN PRN Reason: Pain (mild 1-3) Last Admin: 03/18/19 23:07 Dose: 650 mg Albuterol/Ipratropium (Duoneb 3.0-0.5 Mg/3 Ml) 3 ml NEB Q6HRRT PRN PRN Reason: Dyspnea Last Admin: 03/19/19 19:07 Dose: 3 ml Aspirin (Aspirin) 81 mg PO DAILY [facility] Last Admin: 03/22/19 08:15 Dose: 81 mg Diltiazem HCl (Diltiazem) 10 mg IVPUSH Q3H PRN PRN Reason: Tachycardia Last Admin: 03/19/19 16:35 Dose: 10 mg Docusate Sodium (Colace) 100 mg PO DAILY PRN PRN Reason: Constipation Fluticasone Propionate (Flonase) 0 gm NASBOTH DAILY [facility] Last Admin: 03/22/19 08:15 Dose: 1 spray Heparin Sodium (Porcine) (Heparin Sodium) 5,000 units SUBCUT Q8H [facility] Last Admin: 03/23/19 07:57 Dose: 5,000 units Metoprolol Tartrate (Lopressor) 25 mg PO Q12H [facility] Last Admin: 03/22/19 22:34 Dose: 25 mg Ondansetron HCl (Zofran) 4 mg IVPUSH Q4H PRN PRN Reason: Nausea Sodium Chloride (Saline Flush) 10 ml FLUSH ASDIRECTED PRN PRN Reason: Keep Vein Open Sodium Chloride (Saline Flush) 2.5 ml FLUSH ASDIRECTED PRN PRN Reason: Keep Vein Open Discontinued Medications Furosemide (Lasix) 40 mg IVPUSH NOW ONE Stop: 03/19/19 16:52 Last Admin: 03/19/19 17:08 Dose: 40 mg Furosemide (Lasix) 40 mg IVPUSH NOW ONE Stop: 03/20/19 10:01 Last Admin: 03/20/19 10:32 Dose: 40 mg Sodium Chloride (Normal Saline) 1,000 mls @ 999 mls/hr IV .BOLUS ONE Stop: 03/17/19 13:46 Last Admin: 03/17/19 13:05 Dose: 999 mls/hr Sodium Chloride (Normal Saline) 1,000 mls @ 125 mls/hr IV ASDIRECTED [facility] Last Admin: 03/17/19 13:58 Dose: 125 mls/hr Sodium Chloride (Normal Saline) 1,000 mls @ 999 mls/hr IV .BOLUS ONE Stop: 03/17/19 15:02 Last Admin: 03/17/19 15:35 Dose: 999 mls/hr Sodium Chloride (Normal Saline) 1,000 mls @ 150 mls/hr IV Q6H [facility] Last Admin: 03/19/19 08:14 Dose: 150 mls/hr Magnesium Sulfate 2 gm/ Premix 50 mls @ 50 mls/hr IV ONETIME ONE Stop: 03/18/19 09:05 Last Admin: 03/18/19 08:21 Dose: 50 mls/hr Magnesium Sulfate 2 gm/ Premix 50 mls @ 50 mls/hr IV ONETIME ONE Stop: 03/19/19 20:59 Last Admin: 03/19/19 21:13 Dose: 50 mls/hr Pantoprazole Sodium 40 mg/ (Sodium Chloride) 10 mls @ 300 mls/hr IV NOW ONE Stop: 03/21/19 10:01 Last Admin: 03/21/19 11:17 Dose: 300 mls/hr Magnesium Sulfate 2 gm/ Premix 50 mls @ 50 mls/hr IV ONETIME ONE Stop: 03/22/19 09:14 Last Admin: 03/22/19 08:21 Dose: 50 mls/hr Sodium Phosphate (Neutra-Phos) 250 mg PO QID [facility] Last Admin: 03/22/19 11:19 Dose: 250 mg - Exam General: Reports: Alert, Oriented, Cooperative, No Acute Distress HEENT: Reports: Other (L lower eye lid basal cell carcinoma.) Lungs: Reports: Clear to Auscultation, Normal Respiratory Effort Cardiovascular: Reports: Regular Rate, Regular Rhythm GI/Abdominal Exam: Normal Bowel Sounds, Soft, Non-Tender Back Exam: Reports: Normal Inspection, Full Range of Motion Skin: Reports: Other (healing abrasions to elbows and knees. No infection noted. Bruising to L hip improving.) Wound/Incisions: Reports: Healing Well Psy/Mental Status: Reports: Alert, Normal Affect, Normal Mood
[2019-03-23] MEDS: Aspirin 81 MG Tab.Chew PO SCH (09:31)
[2019-03-23] MEDS: Fluticasone Propionate Nasal Spray 16 GM Bottle NASBOTH SCH (09:31)
[2019-03-23] MEDS: Metoprolol Tartrate 25 MG Tab PO SCH (09:32)
== END 2019-03-23 13:30 | DRG 558 ==
LOC: MW.ED 11:30 → MW.MS 14:17
PROVIDERS: ADMIT Internal Medicine; ATTEND Internal Medicine
DX: M62.82 Rhabdomyolysis (principal); J81.1 Chronic pulmonary edema; H40.9 Unspecified glaucoma; M54.9 Dorsalgia, unspecified; G89.29 Other chronic pain; Z85.828 Personal history of other malignant neoplasm of skin; E46 Unspecified protein-calorie malnutrition; Z68.1 Body mass index [BMI] 19.9 or less, adult; R55 Syncope and collapse; I48.0 Paroxysmal atrial fibrillation; F03.90 Unspecified dementia, unspecified severity, without behavioral disturbance, psychotic disturbance, mood disturbance, and anxiety; R68.89 Other general symptoms and signs; Z79.82 Long term (current) use of aspirin; Z79.899 Other long term (current) drug therapy
CPT/HCPCS: 36415; 70450; 71045; 73502; 80053; 82550; 82962; 83735; 84100; 84484; 85025; 93005; 96360; 99285; G0480; J7030 ×2; 80048; 80305-QW; 81001; 93306; 94640; 97110-GP; 97162-GP; 97530-GP; 99284; A9270-GY; C9113; J1644; J1940; J3475; J3490; J7050; J7620-GY

== ENCOUNTER 2022-03-04 09:21 | Emergency (ER) | payer MEDICAID | END 2022-03-04 10:57 | disposition home or self-care (01) | LOC: MW.ED 09:21 | DX: H10.32 Unspecified acute conjunctivitis, left eye (principal); Z79.82 Long term (current) use of aspirin | CPT/HCPCS: 99283 ==